=== PATIENT | male | born 1950 | race Caucasian/White ===

== ENCOUNTER 2016-06-30 19:16 | Emergency (ER) | payer MEDICARE, OTHER ==
[~2016-06-30] VITALS: Ht 174 cm; Wt 69.0 kg
[~2016-06-30 19:16] MED LIST: ACET-141 PO; ALBU18HF INHALATION; AZIT250T94 PO
[2016-06-30 19:20] VITALS: Ht 174 cm; Wt 69.0 kg
[2016-06-30] MEDS ORDERED: IPRATROPIUM (NEB) 0.5 MG/2.5 ML AMP NEB STA (20:49)
[2016-06-30] MEDS ORDERED: ALBUTEROL 0.5% (NEB) 2.5 MG/0.5 ML AMP NEB STA (20:49)
[2016-06-30] MEDS ORDERED: ACETAMINOPHEN 325 MG TAB PO ONE (21:00)
--- NOTE | 2016-06-30 21:31 | RADRPT ---
PROCEDURE: XR Chest AP portable CLINICAL INDICATION: Asthma exacerbation TECHNIQUE: An AP portable radiograph of the chest was submitted. COMPARISON: 12/28/2015 FINDINGS: Support Hardware: None Cardiovascular: The heart is upper normal in size of the aorta appears quite tortuous and the pulmon stacey vasculature appears unremarkable. Lung Self: The lung self appear clear with no nodule, alveolar infiltrate, for a interstitial pr ominence evident. Pleural Spaces: No pneumothorax or pleural effusion is identified. Osseous Structures: Moderate diffuse degenerative spine changes are again noted. There is an old fr acture deformity involving the posterior left 7th rib. Soft Tissues: The soft tissues appear unremarkable. IMPRESSION: 1. Atherosclerotic aorta 2. Old fracture deformity again seen at the posterior left 7th rib with diffuse degenerative spine changes. Physician Daphne Date Time Electronically viewed and signed by Jairo Aaron Physician on 06/30/2016 21:30 /
[2016-06-30] MEDS ORDERED: ALBU18HF INHALATION (22:27)
[2016-06-30] MEDS ORDERED: UDROBDM PO (22:27)
[2016-06-30 22:33] VITALS: BP 158/80; PULSE 78; RESP 20; TEMP 98.9
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
== END 2016-06-30 22:38 | disposition home or self-care (01) ==
LOC: FTE 19:16
DX: J06.9 Acute upper respiratory infection, unspecified (principal); F17.210 Nicotine dependence, cigarettes, uncomplicated; I10 Essential (primary) hypertension; R05 Cough
CPT/HCPCS: 71010; 94644

== ENCOUNTER 2016-07-02 10:06 | Emergency (ER) | payer MEDICARE, OTHER ==
[~2016-07-02] VITALS: Ht 172.7 cm; Wt 67.0 kg
[~2016-07-02 10:06] MED LIST changes: +UDROBDM PO
[2016-07-02 10:13] VITALS: Ht 172.7 cm; Wt 67.0 kg
== END 2016-07-02 12:05 | disposition left against medical advice (07) ==
LOC: FTE 10:06
DX: Z53.21 Procedure and treatment not carried out due to patient leaving prior to being seen by health care provider (principal)

== ENCOUNTER 2016-10-31 03:34 | Emergency (ER) | payer MEDICARE, OTHER ==
[~2016-10-31] VITALS: Ht 172.7 cm; Wt 67.0 kg
[2016-10-31 03:48] VITALS: Ht 172.7 cm; Wt 67.0 kg
[2016-10-31] MEDS ORDERED: CYCL-319 PO (04:04)
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
== END 2016-10-31 04:10 | disposition home or self-care (01) ==
LOC: E/R 03:34
DX: M54.12 Radiculopathy, cervical region (principal); I10 Essential (primary) hypertension; F17.210 Nicotine dependence, cigarettes, uncomplicated
CPT/HCPCS: 99283

== ENCOUNTER 2017-01-30 01:58 | Inpatient (IN) | payer MEDICARE, OTHER ==
[~2017-01-30] VITALS: Ht 175.3 cm; Wt 65.0 kg
[~2017-01-30 01:58] MED LIST changes: +CYCL-319 PO
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
[2017-01-30 03:32] LABS: BASOPHILS % 0.7 % (0.0-2.0); EOSINOPHILS # 0.1 10^3/ul (0.0-0.5); EOSINOPHILS % 1.7 % (0.0-7.0); HEMATOCRIT 41.1 % (42.0-52.0); HEMOGLOBIN 13.4 g/dl (14.0-18.0); LYMPHOCYTES # 1.2 10^3/ul (0.8-2.9); LYMPHOCYTES % 21.9 % (15.0-51.0); MEAN CORPUSCULAR HEMOGLOBIN 30.3 pg (29.0-33.0); MEAN CORPUSCULAR HGB CONC 32.6 g/dl (32.0-37.0); MEAN PLATELET VOLUME 10.2 fl (7.4-10.4); MONOCYTE # 0.7 10^3/ul (0.3-0.9); MONOCYTES % 12.2 % (0.0-11.0); NEUTROPHILS % 63.3 % (39.0-77.0); PLATELET COUNT 223 10^3/UL (140-415); RED BLOOD COUNT 4.42 10^6/ul (4.70-6.10); RED CELL DISTRIBUTION WIDTH 14.1 % (11.5-14.5); WHITE BLOOD COUNT 5.4 10^3/ul (4.8-10.8)
[2017-01-30 03:42] LABS: INR 1.08; PT RATIO 1.1
[2017-01-30 03:43] LABS: PARTIAL THROMBOPLASTIN TIME 28.9 Sec (25.0-35.0)
[2017-01-30 03:45] LABS: ALANINE AMINOTRANSFERASE 66 IU/L (13-69); ALBUMIN/GLOBULIN RATIO 1.11; ALKALINE PHOSPHATASE 103 IU/L (42-121); ANION GAP 17 (8-16); ASPARTATE AMINO TRANSFERASE 47 IU/L (15-46); BILIRUBIN,INDIRECT 0.3 mg/dl (0-1.1); BILIRUBIN,TOTAL 0.3 mg/dl (0.2-1.3); BLOOD UREA NITROGEN 24 mg/dl (7-20); CALCIUM 9.2 mg/dl (8.4-10.2); CARBON DIOXIDE 27 mmol/L (21-31); CHLORIDE 104 mmol/L (97-110); CREATININE 1.15 mg/dl (0.61-1.24); GLUCOSE 84 mg/dl (70-220); POTASSIUM 4.5 mmol/L (3.5-5.1); SODIUM 143 mmol/L (135-144); TOTAL PROTEIN 7.6 g/dl (6.1-8.1)
[2017-01-30] MEDS ORDERED: IODIXANOL LOCM 100 ML BTL ONE (04:08)
[2017-01-30] MEDS ORDERED: SOD CHLORIDE 0.9% 100 ML ONE (04:08)
[2017-01-30 04:23] LABS: ETHANOL < 10.0 mg/dl
[2017-01-30 05:07] VITALS: TEMP 98.6
[2017-01-30] MEDS ORDERED: FAMOTIDINE 20 MG INJ IV ONE (05:30)
[2017-01-30 07:03] VITALS: PULSE 79
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
[2017-01-30] MEDS ORDERED: morphine 4 MG/ML VIAL IV PRN (07:30)
[2017-01-30] MEDS ORDERED: ALBUTEROL/IPRATROPIUM (NEB) 3 ML AMP HHN PRN (07:30)
[2017-01-30] MEDS ORDERED: NACL 0.9% 3 ML SYG IV SCH (07:30)
[2017-01-30] MEDS ORDERED: METOCLOPRAMIDE 10 MG INJ IV PRN (07:30)
[2017-01-30] MEDS ORDERED: ONDANSETRON 4 MG INJ IV PRN (07:30)
[2017-01-30] MEDS ORDERED: hydrALAzine 20 MG INJ IV PRN (08:30)
[2017-01-30 08:33] VITALS: BP 128/64; RESP 20
[2017-01-30] MEDS ORDERED: PANTOPRAZOLE 40 MG INJ IV SCH (09:00)
[2017-01-30] MEDS: DEXTROSE 5%-0.45% NACL 1,000 ML IV SCH ×3 (10:02→20:14)
[2017-01-30] MEDS: HYDROmorphONE 1 MG/ML SYG IV PRN ×2 (10:06→20:18)
[2017-01-30 10:13] VITALS: Ht 175.3 cm; Wt 65.0 kg
--- NOTE | 2017-01-30 10:20 | RADRPT ---
PROCEDURE: Chest. CLINICAL INDICATION: Chest pain. TECHNIQUE: Single frontal view of the chest was obtained. COMPARISON: 06/30/2016. FINDINGS: The cardiac silhouette is magnified. The aortic arch is unremarkable. There is no focal consolidat ion, vascular congestion or pleural effusion. There is no pneumothorax. IMPRESSION: No evidence for active cardiopulmonary disease. .Juventino Bucio MD, Date Time Electronically viewed and signed by .Juventino Bucio MD, on 01/30/2017 03:36 .T/
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
[2017-01-30 14:00] VITALS: BP 120/53; RESP 20
[2017-01-30 20:35] VITALS: BP 134/65; RESP 21
[2017-01-31 03:06] VITALS: BP 112/70; RESP 19
[2017-01-31 03:12] VITALS: BP 108/69; RESP 17
[2017-01-31 05:28] LABS: BASOPHIL # 0.1 10^3/ul (0.0-0.1); BASOPHILS % 1.1 % (0.0-2.0); EOSINOPHILS # 0.2 10^3/ul (0.0-0.5); EOSINOPHILS % 4.2 % (0.0-7.0); HEMATOCRIT 43.7 % (42.0-52.0); HEMOGLOBIN 14.2 g/dl (14.0-18.0); LYMPHOCYTES # 0.9 10^3/ul (0.8-2.9); LYMPHOCYTES % 16.7 % (15.0-51.0); MEAN CORPUSCULAR HEMOGLOBIN 30.6 pg (29.0-33.0); MEAN CORPUSCULAR HGB CONC 32.5 g/dl (32.0-37.0); MEAN CORPUSCULAR VOLUME 94.2 fl (82.0-101.0); MEAN PLATELET VOLUME 10.7 fl (7.4-10.4); MONOCYTE # 0.6 10^3/ul (0.3-0.9); MONOCYTES % 11.1 % (0.0-11.0); NEUTROPHILS % 66.7 % (39.0-77.0); PLATELET COUNT 206 10^3/UL (140-415); RED BLOOD COUNT 4.64 10^6/ul (4.70-6.10); RED CELL DISTRIBUTION WIDTH 14.4 % (11.5-14.5); WHITE BLOOD COUNT 5.2 10^3/ul (4.8-10.8)
[2017-01-31 05:47] LABS: ALBUMIN 3.6 g/dl (3.3-4.9); ALBUMIN/GLOBULIN RATIO 1.12; BILIRUBIN,INDIRECT 0.5 mg/dl (0-1.1); BILIRUBIN,TOTAL 0.5 mg/dl (0.2-1.3); CREATININE 1.1 mg/dl (0.61-1.24); MAGNESIUM 1.8 mg/dl (1.7-2.5); PHOSPHORUS 4.1 mg/dl (2.5-4.9); POTASSIUM 4.3 mmol/L (3.5-5.1); TOTAL PROTEIN 6.8 g/dl (6.1-8.1)
[2017-01-31 06:46] LABS: CALCIUM 8.7 mg/dl (8.4-10.2)
[2017-01-31 07:45] VITALS: BP 140/77; RESP 16
[2017-01-31] MEDS: NICOTINE (21 MG/24 HR) PATCH TRANSDERM SCH (08:20)
--- NOTE | 2017-01-31 10:09 | PN ---
Date/Time of Note Date/Time of Note DATE: 01/31/17 TIME: 10:09 Assessment/Plan Lines/Catheters IV Catheter Type (from Nrs): Saline Lock Exam/Review of Systems Vital Signs Vitals Vital Signs Date Time Temp Pulse Resp B/P Pulse Ox O2 Delivery O2 Flow Rate FiO2 01/31/17 07:45 98.3 53 16 140/77 95 01/30/17 07:03 Room Air Intake and Output 01/30/17 01/30/17 01/31/17 15:00 23:00 07:00 Intake Total 1000 ml 1710 ml Balance 1000 ml 1710 ml Results Result Diagram: 01/31/17 0500 01/31/17 0500 Results 24 hrs Laboratory Tests Test 01/31/17 05:00 White Blood Count 5.2 Red Blood Count 4.64 L Hemoglobin 14.2 Hematocrit 43.7 Mean Corpuscular Volume 94.2 Mean Corpuscular Hemoglobin 30.6 Mean Corpuscular Hemoglobin Concent 32.5 Red Cell Distribution Width 14.4 Platelet Count 206 Mean Platelet Volume 10.7 H Neutrophils % 66.7 Lymphocytes % 16.7 Monocytes % 11.1 H Eosinophils % 4.2 Basophils % 1.1 Nucleated Red Blood Cells % 0.0 Neutrophils # (Manual) 3 Lymphocytes # 0.9 Monocytes # 0.6 Eosinophils # 0.2 Basophils # 0.1 Nucleated Red Blood Cells # 0.0 Sodium Level 138 Potassium Level 4.3 Chloride Level 102 Carbon Dioxide Level 28 Anion Gap 12 Blood Urea Nitrogen 19 Creatinine 1.10 Glucose Level 98 Calcium Level 8.7 Phosphorus Level 4.1 Magnesium Level 1.8 Total Bilirubin 0.5 Direct Bilirubin 0.00 Indirect Bilirubin 0.5 Aspartate Amino Transf (AST/SGOT) 46 Alanine Aminotransferase (ALT/SGPT) 60 Alkaline Phosphatase 88 Total Protein 6.8 Albumin 3.6 Globulin 3.20 Albumin/Globulin Ratio 1.12 Medications Medications Current Medications Metoclopramide HCl (Reglan) 10 mg Q6H PRN IV NAUSEA AND/OR VOMITING; Start at 07:30 Morphine Sulfate (morphine) 4 mg Q4H PRN IV pain; Start 01/30/17 at 07:30 Hydromorphone HCl (Dilaudid) 1 mg Q4H PRN IV pain Last administered on t 20:18; Admin Dose 1 MG; Start 01/30/17 at 07:30 Hydralazine HCl (Apresoline) 10 mg Q4H PRN IV SBP > 170; Start 01/30/17 at 08: 30 Nicotine (Nicoderm 21 Mg/ 24hr) 1 patch DAILY TRANSDERM Last administered on t 08:20; Admin Dose 1 PATCH; Start 01/31/17 at 09:00 AMBER MENJIVAR NP Jan 31, 2017 10:09
[2017-01-31] MEDS: HYDROmorphONE 1 MG/ML SYG IV PRN (10:15)
--- NOTE | 2017-01-31 10:22 | PDOCDIS ---
Discharge Instructions CONDITION Patient Condition: Stable HOME CARE INSTRUCTIONS: Special Diet: regular FOLLOW UP/APPOINTMENTS Follow-up Plan 1.Follow up with primary care physician in 1 week If you don't have one please let someone know, we can give you resources that may help you pick one. You may also call your insurance company to assign one to you. Review your medication list with your nurse before leaving and if you need new prescriptions please let your nurse know. I may have made changes to your home medications or given you new prescriptions, please let your primary doctor know as well. Stay compliant with your medications and report any side effects to your PCP or pharmacist. Return to the ER if you have any concerns and cannot reach your doctors or call your insurance company, they usually have a nurse that can help you. 2. Call 911 or go to the nearest emergency room if experiencing loss of consciousness, dizziness, chest pain, shortness of breath, vomiting/abdominal pain, speech difficulties, motor weakness or any unusual symptoms. AMBER MENJIVAR NP Jan 31, 2017 10:22
[2017-01-31] MEDS ORDERED: HYDR-906 PO (10:23)
[2017-01-31] MEDS ORDERED: IBUP200C11 PO (10:24)
[2017-01-31] MEDS ORDERED: ACET500C5 PO (10:29)
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
[2017-01-31 14:30] VITALS: BP 139/74; RESP 18
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
[2017-01-31] MEDS ORDERED: morphine 10 MG INJ IM PRN (15:00)
[2017-01-31] MEDS: FAMOTIDINE 20 MG INJ IV SCH ×2 (15:14→21:08)
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
[2017-01-31 21:06] VITALS: BP 139/82; RESP 19
[2017-01-31 23:22] LABS: HEMATOCRIT 43.2 % (42.0-52.0); HEMOGLOBIN 14.3 g/dl (14.0-18.0)
[2017-02-01 02:00] VITALS: BP 129/56; RESP 19
[2017-02-01] MEDS: morphine 2 MG INJ IV PRN ×2 (04:06→11:04)
[2017-02-01 07:48] LABS: BASOPHIL # 0.1 10^3/ul (0.0-0.1); BASOPHILS % 1.3 % (0.0-2.0); EOSINOPHILS # 0.2 10^3/ul (0.0-0.5); EOSINOPHILS % 4.2 % (0.0-7.0); HEMATOCRIT 43.9 % (42.0-52.0); HEMOGLOBIN 14.2 g/dl (14.0-18.0); LYMPHOCYTES % 18.1 % (15.0-51.0); MEAN CORPUSCULAR HEMOGLOBIN 29.8 pg (29.0-33.0); MEAN CORPUSCULAR HGB CONC 32.3 g/dl (32.0-37.0); MEAN CORPUSCULAR VOLUME 92.2 fl (82.0-101.0); MONOCYTE # 0.6 10^3/ul (0.3-0.9); MONOCYTES % 10.5 % (0.0-11.0); NEUTROPHILS % 65.7 % (39.0-77.0); PLATELET COUNT 213 10^3/UL (140-415); RED BLOOD COUNT 4.76 10^6/ul (4.70-6.10); RED CELL DISTRIBUTION WIDTH 14.2 % (11.5-14.5); WHITE BLOOD COUNT 5.4 10^3/ul (4.8-10.8)
[2017-02-01 08:05] LABS: CALCIUM 8.8 mg/dl (8.4-10.2); CREATININE 0.95 mg/dl (0.61-1.24); POTASSIUM 4.3 mmol/L (3.5-5.1)
[2017-02-01] MEDS: FAMOTIDINE 20 MG INJ IV SCH (09:43)
[2017-02-01] MEDS: NICOTINE (21 MG/24 HR) PATCH TRANSDERM SCH (09:43)
[2017-02-01 10:10] VITALS: BP 130/63; RESP 18
--- NOTE | 2017-02-01 12:06 | PN ---
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 Plan: * Observation * Endoscopic evaluation only if evidence of significant active GI bleeding * As hemoglobin remains stable patient may be discharged * We will sign off and follow upon request Subjective 24 Hr Interval Summary Free Text/Dictation Course reviewed with nursing staff Patient interviewed and examined Poor communication, lethargic, uncooperative No GI complaints no evidence of overt gastrointestinal bleeding Appears safe for outpatient follow-up Exam/Review of Systems Vital Signs Vitals Vital Signs Date Time Temp Pulse Resp B/P Pulse Ox O2 Delivery O2 Flow Rate FiO2 02/01/17 10:10 98.9 64 18 130/63 96 01/30/17 07:03 Room Air Intake and Output 01/31/17 01/31/17 02/01/17 15:00 23:00 07:00 Intake Total 960 ml 480 ml Balance 960 ml 480 ml Exam Constitutional: alert, frail, oriented, other (Lethargic), well developed Head: atraumatic, normocephalic Neck: non-tender, supple Respiratory: clear to auscultation, normal air movement Cardiovascular: nl pulses, regular rate and rhythm Gastrointestinal: nl liver, spleen, non-tender, soft Musculoskeletal: nl extremities to inspection Extremities: normal pulses Skin: nl turgor, No rash or lesions Lymph: nl lymph nodes Results Result Diagram: 02/01/17 0554 02/01/17 0554 Results 24 hrs Laboratory Tests Test 01/31/17 23:03 02/01/17 05:54 Hemoglobin 14.3 14.2 Hematocrit 43.2 43.9 White Blood Count 5.4 Red Blood Count 4.76 Mean Corpuscular Volume 92.2 Mean Corpuscular Hemoglobin 29.8 Mean Corpuscular Hemoglobin Concent 32.3 Red Cell Distribution Width 14.2 Platelet Count 213 Mean Platelet Volume 11.0 H Neutrophils % 65.7 Lymphocytes % 18.1 Monocytes % 10.5 Eosinophils % 4.2 Basophils % 1.3 Nucleated Red Blood Cells % 0.0 Neutrophils # (Manual) 4 Lymphocytes # 1.0 Monocytes # 0.6 Eosinophils # 0.2 Basophils # 0.1 Nucleated Red Blood Cells # 0.0 Sodium Level 142 Potassium Level 4.3 Chloride Level 103 Carbon Dioxide Level 27 Anion Gap 16 Blood Urea Nitrogen 25 H Creatinine 0.95 Glucose Level 107 Calcium Level 8.8 Medications Medications Current Medications Metoclopramide HCl (Reglan) 10 mg Q6H PRN IV NAUSEA AND/OR VOMITING Last administered on 01/31/17 14:45; Admin Dose 10 MG; Start 01/30/17 at 07:30 Morphine Sulfate (morphine) 4 mg Q4H PRN IV pain; Start 01/30/17 at 07:30 Hydralazine HCl (Apresoline) 10 mg Q4H PRN IV SBP > 170; Start 01/30/17 at 08: 30 Nicotine (Nicoderm 21 Mg/ 24hr) 1 patch DAILY TRANSDERM Last administered on 09:43; Admin Dose 1 PATCH; Start 01/31/17 at 09:00 Famotidine (Pepcid Iv) 20 mg BID IV Last administered on 02/01/17 09:43; Admin Dose 20 MG; Start 01/31/17 at 15:00 Morphine Sulfate (morphine) 2 mg Q4H PRN IV PAIN Last administered on 11:04; Admin Dose 2 MG; Start 02/01/17 at 04:00 ADRIENNE ESCOBAR MD Feb 01, 2017 12:06
[2017-02-01 12:43] LABS: HEMATOCRIT 45.2 % (42.0-52.0); HEMOGLOBIN 14.9 g/dl (14.0-18.0)
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
[2017-02-01 17:11] VITALS: BP 147/68; RESP 18
[2017-02-01] MEDS ORDERED: FAMOTIDINE 20 MG TAB PO SCH (21:00)
== END 2017-02-01 18:00 | disposition home or self-care (01) | DRG 379 ==
LOC: E/R 01:58 → PP2 05:28
PROVIDERS: ADMIT Internal Medicine; ATTEND Internal Medicine
DX: K92.0 Hematemesis (principal); I78.0 Hereditary hemorrhagic telangiectasia; R10.9 Unspecified abdominal pain; I16.0 Hypertensive urgency; I10 Essential (primary) hypertension; F17.200 Nicotine dependence, unspecified, uncomplicated; Z76.5 Malingerer [conscious simulation]; Z59.0 Homelessness
CPT/HCPCS: 71010; 74177; 80048; 80053; 80306; 83690; 83735; 84100; 85014; 85018; 85025; 85610; 85730; 86850; 86900; 86901; 96374; J1170; J2270; J2765; J7042; Q9967

== ENCOUNTER 2017-02-08 10:51 | Inpatient (IN) | payer MEDICARE, OTHER ==
[~2017-02-08] VITALS: Ht 175.3 cm; Wt 63.2 kg
[~2017-02-08 10:51] MED LIST changes: -ACET-141 PO; +ACET500C5 PO; -ALBU18HF INHALATION; -AZIT250T94 PO; -CYCL-319 PO; -UDROBDM PO
[2017-02-08] MEDS ORDERED: PANTOPRAZOLE 40 MG INJ IV STA (11:25)
--- NOTE | 2017-02-08 12:19 | RADRPT ---
PROCEDURE: XR Chest. CLINICAL INDICATION: Upper gastrointestinal bleeding. TECHNIQUE: Single frontal view. COMPARISON: 01/30/2017. FINDINGS: The lungs are clear. The heart size is normal. There is calcification in the aorta consistent with atherosclerosis. There is no pleural effusion or pneumothorax. There is an old healed fracture of the left seventh rib. IMPRESSION: 1. Atherosclerosis. 2. Clear lungs. 3. Old healed left seventh rib fracture. RPTAT: QQ .Mathieu Mitchell MD, MD Date Time Electronically viewed and signed by .Mathieu Mitchell MD, MD on 02/08/2017 12:18 .R/
[2017-02-08 12:44] LABS: BASOPHIL # 0.1 10^3/ul (0.0-0.1); BASOPHILS % 1.7 % (0.0-2.0); EOSINOPHILS # 0.2 10^3/ul (0.0-0.5); EOSINOPHILS % 3.9 % (0.0-7.0); HEMATOCRIT 41.8 % (42.0-52.0); HEMOGLOBIN 13.8 g/dl (14.0-18.0); LYMPHOCYTES # 0.8 10^3/ul (0.8-2.9); LYMPHOCYTES % 19.9 % (15.0-51.0); MEAN CORPUSCULAR HEMOGLOBIN 30.9 pg (29.0-33.0); MEAN CORPUSCULAR VOLUME 93.7 fl (82.0-101.0); MEAN PLATELET VOLUME 10.7 fl (7.4-10.4); MONOCYTE # 0.5 10^3/ul (0.3-0.9); MONOCYTES % 12.3 % (0.0-11.0); PLATELET COUNT 202 10^3/UL (140-415); RED BLOOD COUNT 4.46 10^6/ul (4.70-6.10); RED CELL DISTRIBUTION WIDTH 14.2 % (11.5-14.5); WHITE BLOOD COUNT 4.1 10^3/ul (4.8-10.8)
[2017-02-08] MEDS ORDERED: FAMOTIDINE 20 MG INJ IV STA (12:54)
[2017-02-08] MEDS ORDERED: morphine 4 MG/ML VIAL IV STA (12:54)
[2017-02-08 13:00] LABS: INR 1.03; PROTIME 13.5 Sec (12.2-14.2); PT RATIO 1.1
[2017-02-08] MEDS ORDERED: METOCLOPRAMIDE 10 MG INJ IV ONE (13:00)
[2017-02-08 13:01] LABS: PARTIAL THROMBOPLASTIN TIME 30.6 Sec (25.0-35.0)
[2017-02-08 13:04] LABS: ALANINE AMINOTRANSFERASE 61 IU/L (13-69); ALBUMIN 3.9 g/dl (3.3-4.9); ALBUMIN/GLOBULIN RATIO 1.08; ALKALINE PHOSPHATASE 96 IU/L (42-121); ANION GAP 17 (8-16); ASPARTATE AMINO TRANSFERASE 45 IU/L (15-46); BILIRUBIN,INDIRECT 0.9 mg/dl (0-1.1); BILIRUBIN,TOTAL 0.9 mg/dl (0.2-1.3); BLOOD UREA NITROGEN 18 mg/dl (7-20); CARBON DIOXIDE 29 mmol/L (21-31); CHLORIDE 103 mmol/L (97-110); CREATININE 0.95 mg/dl (0.61-1.24); GLUCOSE 86 mg/dl (70-220); POTASSIUM 4.4 mmol/L (3.5-5.1); SODIUM 145 mmol/L (135-144); TOTAL PROTEIN 7.5 g/dl (6.1-8.1)
[2017-02-08] MEDS ORDERED: SOD CHLORIDE 0.9% 100 ML ONE (13:06)
[2017-02-08] MEDS ORDERED: IOHEXOL 300MG/ML 150 ML BTL ONE (13:06)
[2017-02-08 13:20] LABS: TROPONIN-I < 0.012 ng/ml (0.00-0.12)
[2017-02-08] MEDS ORDERED: HYDROmorphONE 1 MG/ML SYG IV STA (13:45)
--- NOTE | 2017-02-08 13:54 | ERA ---
ER Documentation Chief Complaint Date/Time DATE: 02/08/17 TIME: 13:49 Chief Complaint CODE GREEN: VOMITING BRIGHT RED BLOOD SINCE THIS AM. 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 The patient was a code green as he stated he was too weak to ambulate into the emergency department and therefore was sitting outside on the hospital sidewalk. He indicates he is currently homeless and has no history of alcoholism. The patient had a similar episode February 01, 2017 roughly 1 week prior to arrival when he was admitted to the hospital and seen by the GI physician Dr. Barros. The patient has had no fevers or shaking or chills. He denies any dark stool or bright red blood per rectum. He denies any shortness of breath. He is complaining of epigastric pain that radiates to the sternum and to the left side of his back. He denies any chest pressure that radiates to the neck arm back or jaw. He denies any lower abdominal pain. He has no frequency urgency or dysuria. He states the pain is 10 out of 10 in intensity. ROS All systems reviewed and are negative except as per history of present illness. Medications Home Meds Discontinued Scripts Acetaminophen* (Tylophen*) 500 Mg Capsule, 500 MG PO Q6H Y for PAIN, #30 TAB Prov:AMBER MENJIVAR NP 01/31/17 Allergies Allergies: Coded Allergies: ondansetron (Verified Allergy, Intermediate, swelling to vein, 02/08/17) ibuprofen (Verified Allergy, Mild, 02/08/17) strawberry (Verified Allergy, Mild, 02/08/17) pantoprazole sodium (Verified Allergy, Unknown, 02/08/17) zolpidem (Verified Allergy, Unknown, 02/08/17) PMhx/Soc History of Surgery: No Anesthesia Reaction: No Hx Neurological Disorder: No Hx Respiratory Disorders: No Hx Cardiac Disorders: No Hx Psychiatric Problems: No Hx Miscellaneous Medical Probl: Yes (anemia,fall,chronic pain) Hx Alcohol Use: No Hx Substance Use: No Hx Tobacco Use: No Smoking Status: Never smoker Physical Exam Vitals Vital Signs Date Time Temp Pulse Resp B/P Pulse Ox O2 Delivery O2 Flow Rate FiO2 8/26/17 10:57 98.3 89 19 135/79 93 Physical Exam Constitutional:Well-developed. Well-nourished. HEENT:Normocephalic. Atraumatic.Pupils were equal round reactive to light. Moist mucous membranes.No tonsillar exudates. No conjunctival pallor. Dried blood surrounding the patient's lips with no blood present within the oropharynx. Neck: No nuchal rigidity. No lymphadenopathy. No posterior cervical spine tenderness or step-offs. Respiratory: Not using accessory muscles of respiration.Lungs were clear to auscultation bilaterally. No rhonchi. No rales. No wheezing. Cardiovascular: Regular rate regular rhythm.No murmurs. No rubs were appreciated.S1, S2 normal. Distal pulses are palpable 2+ bilaterally. GI: Abdomen was soft. Mild epigastric tenderness. Non Distended. No pulsatile abdominal masses or bruits. No rebound. No guarding. Bowel sounds were present and normal. Muscle skeletal: Full range of motion of both the upper and lower extremities bilaterally.Normal muscle tone.No assymetrical calf tenderness or swelling. Skin: No petechia, no purpura. No lesions on the palms or the soles of the feet. No maculopapular rash. NEURO: Patient was alert, awake, orientated x3.No facial droop. Gait observed and normal with no ataxia.Speech had regular rate and rhythm. No focal neurological deficits. Result Diagram: 02/08/17 1214 02/08/17 1214 Results 24 hrs Laboratory Tests Test 02/08/17 12:14 White Blood Count 4.110^3/ul Red Blood Count 4.4610^6/ul Hemoglobin 13.8g/dl Hematocrit 41.8% Mean Corpuscular Volume 93.7fl Mean Corpuscular Hemoglobin 30.9pg Mean Corpuscular Hemoglobin Concent 33.0g/dl Red Cell Distribution Width 14.2% Platelet Count 24371^3/UL Mean Platelet Volume 10.7fl Neutrophils % 62.0% Lymphocytes % 19.9% Monocytes % 12.3% Eosinophils % 3.9% Basophils % 1.7% Nucleated Red Blood Cells % 0.0/100WBC Neutrophils # (Manual) 2.510^3/ul Lymphocytes # 0.810^3/ul Monocytes # 0.510^3/ul Eosinophils # 0.210^3/ul Basophils # 0.110^3/ul Nucleated Red Blood Cells # 0.010^3/ul Prothrombin Time 13.5Sec Prothrombin Time Ratio 1.1 INR International Normalized Ratio 1.03 Activated Partial Thromboplast Time 30.6Sec Sodium Level 145mmol/L Potassium Level 4.4mmol/L Chloride Level 103mmol/L Carbon Dioxide Level 29mmol/L Anion Gap 17 Blood Urea Nitrogen 18mg/dl Creatinine 0.95mg/dl Glucose Level 86mg/dl Calcium Level 9.0mg/dl Total Bilirubin 0.9mg/dl Direct Bilirubin 0.00mg/dl Indirect Bilirubin 0.9mg/dl Aspartate Amino Transf (AST/SGOT) 45IU/L Alanine Aminotransferase (ALT/SGPT) 61IU/L Alkaline Phosphatase 96IU/L Troponin I < 0.012ng/ml B-Type Natriuretic Peptide 170PG/ML Total Protein 7.5g/dl Albumin 3.9g/dl Globulin 3.60g/dl Albumin/Globulin Ratio 1.08 Ethyl Alcohol Level < 10.0mg/dl Current Medications Medications (Trade) Dose Ordered Sig/Yeyo Route PRN Reason Start Time Stop Time Status Last Admin Dose Admin Pantoprazole (Protonix Iv) 40 mg ONCE STAT IV 02/08/17 11:25 02/08/17 11:26 DC Morphine Sulfate (morphine) 4 mg ONCE STAT IV 02/08/17 12:54 02/08/17 12:55 DC Famotidine (Pepcid Iv) 20 mg ONCE STAT IV 02/08/17 12:54 02/08/17 12:55 DC Metoclopramide HCl (Reglan) 10 mg ONCE ONCE IV 02/08/17 13:00 02/08/17 13:01 DC IV Flush 10 ml 10 ml STK-MED ONCE .ROUTE 02/08/17 13:06 02/08/17 13:07 DC Sodium Chloride (NS) 100 ml @ ud STK-MED ONCE .ROUTE 02/08/17 13:06 02/08/17 13:07 DC Iohexol (Omnipaque 300mg/ ml) 150 ml STK-MED ONCE .ROUTE 02/08/17 13:06 02/08/17 13:07 DC Hydromorphone HCl (Dilaudid) 1 mg ONCE STAT IV 02/08/17 13:45 02/08/17 13:47 DC Procedures/MDM The patient presented to the emergency department with a presentation of upper gastrointestinal bleeding. My differential diagnosis included but was not limited to peptic ulcer disease, gastric or esophageal erosions, gastritis, esophageal varices, Patricia-Gorman tear, tumor or arteriovenous malformations. 12 Lead EKG tracing ordered and reviewed by myself showed: Sinus bradycardia 58 bpm and no arrhythmia. W[place] interval normal. QRS duration normal. No ST segment elevation No ST segment depression. No changes consistent with acute ischemia. Left axis deviation The patient received IV Protonix and for analgesic control received intravenous morphine and is allergic to Zofran therefore was given Reglan as an antiemetic. He stated this did not improve his pain and therefore he was given IV Dilaudid. I reviewed the patient's records and he had a CT scan of the abdomen that was performed 1 week ago but given that the patient was having recurrence of his pain with signs of an upper GI bleed and now pain that radiates to the back I did feel is necessary to obtain a CT scan of the chest and abdomen to rule out aortic dissection. This was not present the patient did not appear to have an acute surgical abdomen. The patient will be admitted for further evaluation. He did receive IV Protonix. There is no active emesis while the patient was in the emergency department. Departure Diagnosis: Primary Impression: Hematemesis Qualified Code: K92.0 - Hematemesis with nausea Condition: Serious ITALIAJOSEPHA Feb 08, 2017 13:54
--- NOTE | 2017-02-08 15:35 | RADRPT ---
PROCEDURE: CT Chest, Abdomen and Pelvis. CLINICAL INDICATION: Chest Pain.R/O Dissection TECHNIQUE: CT scan of the chest, abdomen, and pelvis with intravenous contrast was performed on a multidetector CT. The patient was scanned following the uncomplicated intravenous administration of 100 cc of Omnipaque 300 intravenous contrast. 3-D, sagittal and coronal reformatted images were ob tained from the axial source images. CT D I 41 mCi. Dose 443 mCi per centimeter COMPARISON: None. FINDINGS: CT chest: There is no central or peripheral pulmonary embolism. Calcification is seen in the wall of the aort a. No aneurysm or dissection is present. The descending thoracic aorta is tortuous. No hilar or m ediastinal adenopathy or masses present. There is no pleural or pericardial effusion. No lung infi ltrate or mass is present. Noted is a 5 mm noncalcified irregular shaped nodule on the medial aspec t of the anterior segment of the left upper lobe. No other lung nodule is seen. There is no axilla ry, supraclavicular or internal mammary chain adenopathy. Old healed left rib fractures are seen an d there are mild senescent degenerative changes in the thoracic spine. CT abdomen pelvis: The liver is of normal size, contour and attenuation. No mass or intrahepatic ductal dilatation is seen. No gallstones are visualized. No splenic, adrenal or pancreatic abnormality is present. Kid neys enhance symmetrically. No hydronephrosis, calculus or solid masses present. There is a 1 cm p arenchymal cyst of the right kidney. The ureters are of normal course and caliber with no stone. N o bladder masses stone is visualized. The prostate and seminal vesicles are normal. Abdominal aort a is of normal course and caliber with no dissection. There is mild vascular calcifications in the abdomen pelvis. No adenopathy is visualized. There is no bowel mass or obstruction. No phlegmon, ascites or pneumoperitoneum is seen. There is degenerative disk disease at T12-L1. IMPRESSION: Mild calcified plaque thoracic and abdominal aorta. No evidence of dissection or aneurysm. No central or peripheral pulmonary embolism. 5 mm noncalcified irregular shaped nodule left upper lobe. This is indeterminate for malignancy. F ollow-up chest CT should be performed in 3 months to insure stability. No pneumonia or failure. The right renal cyst. Degenerative changes spine. .Ian Marquez MD, MD Date Time Electronically viewed and signed by .Ian Marquez MD, MD on 02/08/2017 15:34 .A/
[2017-02-08] MEDS ORDERED: ACETAMINOPHEN 325 MG TAB PO PRN ×2 (16:00→17:00)
--- NOTE | 2017-02-08 16:31 | HP ---
Date/Time of Note Date/Time of Note DATE: 02/08/17 TIME: 16:31 Assessment/Plan VTE Prophylaxis VTE Prophylaxis Intervention: SCD's Assessment/Plan Assessment/Plan 66 yo M with pmhx HHT, homelessness here with unwitnessed hematemesis. Unclear if pt is being untruthful v actually having hematemesis. #?hematemesis -h2b as pt with alleged PPI allergy -GI eval -serial hgbs. want to keep >7 #lung nodule: outpatient follow up HPI/ROS Admit Date/Time Admit Date/Time Hx of Present Illness CC hematemesis x 1 day HPI 66 yo M with pmhx homelessness, hereditary hemorrhagic telangiectasia, multiple admissions for hematemesis presents with c/o 1 day of hematemesis. Pt was on hospital grounds this AM for unk reasons. Code Green called when pt started vomitting blood? Of note, unclear if this hematemesis was actually witnessed. Pt states he vomitted 8 times in the past 24 hours. Pt most recently admitted here 8.17-8.19 for same. Seen by GI, endoscopy deferred. Pt's most recent EGD on file here appears to be from 2012. Showed moderate degree of esophagitis and duodenitis. No EVs appreciated. In EMR pt is listed as having a PPI allergy though unclear what the allergy is. no hx etoh misuse PMH/Family/Social Past Medical History as per HPI Past Surgical History Past Surgical Hx: no surgical history Social History Smoking Status: Never smoker Exam/Review of Systems Vital Signs Vitals Vital Signs Date Time Temp Pulse Resp B/P Pulse Ox O2 Delivery O2 Flow Rate FiO2 02/08/17 16:23 75 17 131/79 100 Room Air 02/08/17 10:57 98.3 Exam Exam nad, sleeping, disheveled rhinophyma no mrg lungs clear abd soft no rashes no edema hgb 13s, <1 g change from [address] CAP IMPRESSION: Mild calcified plaque thoracic and abdominal aorta. No evidence of dissection or aneurysm. No central or peripheral pulmonary embolism. 5 mm noncalcified irregular shaped nodule left upper lobe. This is indeterminate for malignancy. Follow-up chest CT should be performed in 3 months to insure stability. No pneumonia or failure. The right renal cyst. Degenerative changes spine. Labs Result Diagram: 02/08/17 1214 02/08/17 1214 HANNAH CHAPMAN MD Feb 08, 2017 16:31 02/08/17 10:57 98.3 Labs Result Diagram: 02/08/17 1214 02/08/17 1214 HANNAH CHAPMAN MD Feb 08, 2017 16:31
[2017-02-08] MEDS ORDERED: METOCLOPRAMIDE 10 MG INJ IV PRN (17:00)
[2017-02-08] MEDS ORDERED: BISACODYL (EC) 5 MG TAB PO PRN (17:00)
[2017-02-08] MEDS ORDERED: MAGNESIUM HYDROXIDE 30ML CUP PO PRN (17:00)
[2017-02-08] MEDS ORDERED: ONDANSETRON 4 MG TAB PO PRN (17:00)
[2017-02-08] MEDS ORDERED: BISACODYL 10 MG SUPP PR PRN (17:00)
[2017-02-08] MEDS ORDERED: NACL 0.9% 3 ML SYG IV SCH (17:00)
[2017-02-08] MEDS ORDERED: DOCUSATE SODIUM 100 MG CAP PO PRN (17:00)
[2017-02-08] MEDS: FAMOTIDINE 20 MG TAB PO SCH (21:04)
[2017-02-08 22:10] VITALS: PULSE 66; Ht 175.3 cm; Wt 63.2 kg
[2017-02-08 22:15] VITALS: BP 109/60; RESP 21
[2017-02-08] MEDS: morphine 2 MG INJ IV PRN (22:57)
[2017-02-08] MEDS ORDERED: HYDROCODONE/APAP (5/325) TAB PO PRN (23:00)
[2017-02-09] VITALS (10 sets, daily range): BP systolic 106–142; BP diastolic 56–70; PULSE 52–60; RESP 16–19
[2017-02-09 07:21] LABS: ALBUMIN 3.1 g/dl (3.3-4.9); ALBUMIN/GLOBULIN RATIO 0.91; BILIRUBIN,INDIRECT 0.4 mg/dl (0-1.1); BILIRUBIN,TOTAL 0.4 mg/dl (0.2-1.3); CALCIUM 8.6 mg/dl (8.4-10.2); CREATININE 0.93 mg/dl (0.61-1.24); TOTAL PROTEIN 6.5 g/dl (6.1-8.1)
[2017-02-09] MEDS: morphine 2 MG INJ IV PRN (07:27)
[2017-02-09 07:36] LABS: BASOPHIL # 0.1 10^3/ul (0.0-0.1); BASOPHILS % 1.8 % (0.0-2.0); EOSINOPHILS # 0.2 10^3/ul (0.0-0.5); HEMATOCRIT 40.9 % (42.0-52.0); HEMOGLOBIN 13.5 g/dl (14.0-18.0); LYMPHOCYTES # 1.1 10^3/ul (0.8-2.9); LYMPHOCYTES % 24.1 % (15.0-51.0); MEAN CORPUSCULAR HEMOGLOBIN 31.1 pg (29.0-33.0); MEAN CORPUSCULAR VOLUME 94.2 fl (82.0-101.0); MEAN PLATELET VOLUME 10.8 fl (7.4-10.4); MONOCYTE # 0.6 10^3/ul (0.3-0.9); MONOCYTES % 12.5 % (0.0-11.0); NEUTROPHILS % 56.4 % (39.0-77.0); PLATELET COUNT 194 10^3/UL (140-415); RED BLOOD COUNT 4.34 10^6/ul (4.70-6.10); RED CELL DISTRIBUTION WIDTH 14.1 % (11.5-14.5); WHITE BLOOD COUNT 4.4 10^3/ul (4.8-10.8)
[2017-02-09] MEDS: FAMOTIDINE 20 MG TAB PO SCH ×2 (09:03→20:36)
--- NOTE | 2017-02-09 11:16 | CONS ---
Date/Time of Note Date/Time of Note DATE: 02/09/17 TIME: 11:05 Assessment/Plan Assessment/Plan Additional Assessment/Plan Assessment * Hematemesis Upper GI bleed vs others Plan * Stool for occult blood * EGD tomorrow risks and benefit explained to patient and agreed with the planned procedure * continue present management * case discussed with Dr Barros * Further orders will depend on clinical course Consultation Date/Type/Reason Admit Date/Time Date of Consultation: Feb 09, 2017 Type of Consultation: gastroenterology Reason for Consultation hematemesis Referring Provider: HANNAH CHAPMAN MD Hx of Present Illness 66 year old male with past medical history of Osler rao Rendu syndrome, hemorrhagic telangiectasia,multiple admissions hematemesis presented in emergency room because of hematemesis 3 days about 1/2 glass per bout.He denies any hematochezia,shortness of breath ,nausea nor vomiting..Hemoglobin has been stable at 14,but when waking up ,he noted a blood on the pillow.Presently ,no evidenced of bleeding.I have discussed with the patient the planned to do EGD in order to rule bleeding in stomach since he has been admitted multiple times because of hematemesis Constitutional: improved, no complaints Eyes: no complaints ENT: no complaints Respiratory: no complaints Cardiovascular: no complaints Gastrointestinal: blood Genitourinary: no complaints Musculoskeletal: no complaints Skin: no complaints Neurologic: no complaints Endocrine: no complaints Lymphatic: no complaints Psychological: nl mood/affect, no complaints Immunologic: no complaints Past Medical History Medical History: other (osler rao rendu) Past Surgical History Past Surgical Hx: no surgical history Family History Significant Family History: no pertinent family hx Social History Smoking Status: Current every day smoker Exam/Review of Systems Vital Signs Vitals Vital Signs Date Time Temp Pulse Resp B/P Pulse Ox O2 Delivery O2 Flow Rate FiO2 02/09/17 08:04 52 02/09/17 07:38 98.4 18 121/65 93 02/08/17 16:23 Room Air Exam Constitutional: alert, oriented, well developed Psych: nl mood/affect, no complaints Head: atraumatic, normocephalic Eyes: EOMI, PERRL, nl conjunctiva, nl lids, nl sclera ENMT: nl external ears & nose, nl lips & teeth, nl nasal mucosa & septum Neck: non-tender, supple Respiratory: clear to auscultation, normal air movement Cardiovascular: nl pulses, regular rate and rhythm Gastrointestinal: nl liver, spleen, non-tender, soft Musculoskeletal: nl extremities to inspection, nl gait and stance Extremities: normal pulses Neurological: GUM WORKER II-XII intact, nl mental status, nl speech, nl strength Skin: nl turgor, No rash or lesions Lymph: nl lymph nodes Results Result Diagram: 02/09/17 0536 02/09/17 0536 Results 24 hrs Laboratory Tests Test 02/08/17 12:14 02/09/17 05:36 White Blood Count 4.1 #L 4.4 L Red Blood Count 4.46 L 4.34 L Hemoglobin 13.8 L 13.5 L Hematocrit 41.8 L 40.9 L Mean Corpuscular Volume 93.7 94.2 Mean Corpuscular Hemoglobin 30.9 31.1 Mean Corpuscular Hemoglobin Concent 33.0 33.0 Red Cell Distribution Width 14.2 14.1 Platelet Count 202 194 Mean Platelet Volume 10.7 H 10.8 H Neutrophils % 62.0 56.4 Lymphocytes % 19.9 24.1 Monocytes % 12.3 H 12.5 H Eosinophils % 3.9 5.0 Basophils % 1.7 1.8 Nucleated Red Blood Cells % 0.0 0.0 Neutrophils # (Manual) 2.5 2.5 Lymphocytes # 0.8 1.1 Monocytes # 0.5 0.6 Eosinophils # 0.2 0.2 Basophils # 0.1 0.1 Nucleated Red Blood Cells # 0.0 0.0 Prothrombin Time 13.5 Prothrombin Time Ratio 1.1 INR International Normalized Ratio 1.03 Activated Partial Thromboplast Time 30.6 Sodium Level 145 H 136 Potassium Level 4.4 4.0 Chloride Level 103 101 Carbon Dioxide Level 29 29 Anion Gap 17 H 10 # Blood Urea Nitrogen 18 19 Creatinine 0.95 0.93 Glucose Level 86 81 Calcium Level 9.0 8.6 Total Bilirubin 0.9 0.4 Direct Bilirubin 0.00 0.00 Indirect Bilirubin 0.9 0.4 Aspartate Amino Transf (AST/SGOT) 45 45 Alanine Aminotransferase (ALT/SGPT) 61 58 Alkaline Phosphatase 96 78 Troponin I < 0.012 B-Type Natriuretic Peptide 170 H Total Protein 7.5 6.5 # Albumin 3.9 3.1 L Globulin 3.60 H 3.40 H Albumin/Globulin Ratio 1.08 0.91 Ethyl Alcohol Level < 10.0 Medications Medications Current Medications Metoclopramide HCl (Reglan) 10 mg Q6H PRN IV NAUSEA AND/OR VOMITING; Start at 17:00 Acetaminophen (Tylenol Tab) 650 mg Q6H PRN PO PAIN LEVEL 1-3 OR FEVER; Start at 17:00 Docusate Sodium (Colace) 100 mg Q12H PRN PO CONSTIPATION; Start 02/08/17 at 17: 00 Magnesium Hydroxide (Milk Of Mag) 30 ml DAILY PRN PO CONSTIPATION; Start at 17:00 Bisacodyl (Dulcolax) 5 mg DAILY PRN PO CONSTIPATION; Start 02/08/17 at 17:00 Bisacodyl (Dulcolax Supp) 10 mg DAILY PRN [place] CONSTIPATION; Start 02/08/17 at 17 :00 Famotidine (Pepcid) 20 mg BID PO Last administered on 02/09/17 09:03; Admin Dose 20 MG; Start 02/08/17 at 21:00 Acetaminophen/ Hydrocodone Bitart ([place] (5/325)) 1 tab Q6H PRN PO PAIN LEVEL 4 -7; Start 02/08/17 at 23:00 Morphine Sulfate (morphine) 2 mg Q4H PRN IV PAIN LEVEL 7-10 Last administered on 02/09/17 07:27; Admin Dose 2 MG; Start 02/08/17 at 23:00 JANICE SIDHU NP Feb 09, 2017 11:16
--- NOTE | 2017-02-09 13:33 | PN ---
Date/Time of Note Date/Time of Note DATE: 02/09/17 TIME: 13:27 Assessment/Plan VTE Prophylaxis VTE Prophylaxis Intervention: SCD's Lines/Catheters IV [facility] Saline Lock Urinary Cath still in place: No Assessment/Plan Assessment/Plan 66 yo M with pmhx HHT, homelessness here with unwitnessed hematemesis. Unclear if pt is being untruthful v actually having hematemesis. #?hematemesis -h2b as pt with alleged PPI allergy -GI eval -serial hgbs. want to keep >7 #lung nodule: outpatient follow up with repeat CT in 3 mos Subjective 24 Hr Interval Summary Free Text/Dictation No hematemesis but maybe had some blood from his mouth this AM? Initially wanted to leave to get his food stamps Exam/Review of Systems Vital Signs Vitals Vital Signs Date Time Temp Pulse Resp B/P Pulse Ox O2 Delivery O2 Flow Rate FiO2 02/09/17 11:22 98.2 58 18 131/70 92 02/08/17 16:23 Room Air Exam nad no mrg lungs clear abd soft no rashes hgb still 13s Results Result Diagram: 02/09/17 0536 02/09/17 0536 Results 24 hrs Laboratory Tests Test 02/09/17 05:36 White Blood Count 4.4 L Red Blood Count 4.34 L Hemoglobin 13.5 L Hematocrit 40.9 L Mean Corpuscular Volume 94.2 Mean Corpuscular Hemoglobin 31.1 Mean Corpuscular Hemoglobin Concent 33.0 Red Cell Distribution Width 14.1 Platelet Count 194 Mean Platelet Volume 10.8 H Neutrophils % 56.4 Lymphocytes % 24.1 Monocytes % 12.5 H Eosinophils % 5.0 Basophils % 1.8 Nucleated Red Blood Cells % 0.0 Neutrophils # (Manual) 2.5 Lymphocytes # 1.1 Monocytes # 0.6 Eosinophils # 0.2 Basophils # 0.1 Nucleated Red Blood Cells # 0.0 Sodium Level 136 Potassium Level 4.0 Chloride Level 101 Carbon Dioxide Level 29 Anion Gap 10 # Blood Urea Nitrogen 19 Creatinine 0.93 Glucose Level 81 Calcium Level 8.6 Total Bilirubin 0.4 Direct Bilirubin 0.00 Indirect Bilirubin 0.4 Aspartate Amino Transf (AST/SGOT) 45 Alanine Aminotransferase (ALT/SGPT) 58 Alkaline Phosphatase 78 Total Protein 6.5 # Albumin 3.1 L Globulin 3.40 H Albumin/Globulin Ratio 0.91 Medications Medications Current Medications Metoclopramide HCl (Reglan) 10 mg Q6H PRN IV NAUSEA AND/OR VOMITING; Start at 17:00 Acetaminophen (Tylenol Tab) 650 mg Q6H PRN PO PAIN LEVEL 1-3 OR FEVER; Start at 17:00 Docusate Sodium (Colace) 100 mg Q12H PRN PO CONSTIPATION; Start 02/08/17 at 17: 00 Magnesium Hydroxide (Milk Of Mag) 30 ml DAILY PRN PO CONSTIPATION; Start at 17:00 Bisacodyl (Dulcolax) 5 mg DAILY PRN PO CONSTIPATION; Start 02/08/17 at 17:00 Bisacodyl (Dulcolax Supp) 10 mg DAILY PRN [place] CONSTIPATION; Start 02/08/17 at 17 :00 Famotidine (Pepcid) 20 mg BID PO Last administered on 02/09/17 09:03; Admin Dose 20 MG; Start 02/08/17 at 21:00 Acetaminophen/ Hydrocodone Bitart ([place] (5/325)) 1 tab Q6H PRN PO PAIN LEVEL 4 -7; Start 02/08/17 at 23:00 Morphine Sulfate (morphine) 2 mg Q4H PRN IV PAIN LEVEL 7-10 Last administered on 02/09/17 07:27; Admin Dose 2 MG; Start 02/08/17 at 23:00 HANNAH CHAPMAN MD Feb 09, 2017 13:33
[2017-02-09] MEDS: NICOTINE (21 MG/24 HR) PATCH TRANSDERM SCH (18:35)
[2017-02-09] MEDS: METOCLOPRAMIDE 10 MG INJ IV SCH (21:49)
[2017-02-09] MEDS: FAMOTIDINE 20 MG INJ IV SCH (21:55)
[2017-02-10 04:14] VITALS: BP 122/71; RESP 19
[2017-02-10] MEDS: morphine 2 MG INJ IV PRN ×2 (04:58→09:48)
[2017-02-10] MEDS: METOCLOPRAMIDE 10 MG INJ IV SCH ×2 (04:59→09:49)
[2017-02-10] MEDS: FAMOTIDINE 20 MG INJ IV SCH (05:00)
[2017-02-10 09:38] LABS: BASOPHIL # 0.1 10^3/ul (0.0-0.1); BASOPHILS % 1.5 % (0.0-2.0); EOSINOPHILS # 0.1 10^3/ul (0.0-0.5); EOSINOPHILS % 2.8 % (0.0-7.0); HEMATOCRIT 42.1 % (42.0-52.0); HEMOGLOBIN 13.7 g/dl (14.0-18.0); LYMPHOCYTES % 22.5 % (15.0-51.0); MEAN CORPUSCULAR HEMOGLOBIN 29.8 pg (29.0-33.0); MEAN CORPUSCULAR HGB CONC 32.5 g/dl (32.0-37.0); MEAN CORPUSCULAR VOLUME 91.5 fl (82.0-101.0); MEAN PLATELET VOLUME 10.5 fl (7.4-10.4); MONOCYTE # 0.6 10^3/ul (0.3-0.9); MONOCYTES % 13.4 % (0.0-11.0); NEUTROPHILS % 59.6 % (39.0-77.0); PLATELET COUNT 200 10^3/UL (140-415); WHITE BLOOD COUNT 4.6 10^3/ul (4.8-10.8)
[2017-02-10] MEDS: NICOTINE (21 MG/24 HR) PATCH TRANSDERM SCH (09:48)
[2017-02-10 11:29] VITALS: BP 135/65; RESP 18
--- NOTE | 2017-02-10 13:42 | DS ---
Date/Time of Note Date/Time of Note DATE: 02/10/17 TIME: 13:42 Discharge Summary Admission/Discharge Info Admit Date/Time Feb 08, 2017 at 15:49 Discharge Date/Time Discharge Diagnosis Hematemesis: Patient left AMA Hx of Present Illness CC hematemesis x 1 day HPI 66 yo M with pmhx homelessness, hereditary hemorrhagic telangiectasia, multiple admissions for hematemesis presents with c/o 1 day of hematemesis. Pt was on hospital grounds this AM for unk reasons. Code Zak called when pt started vomitting blood? Of note, unclear if this hematemesis was actually witnessed. Pt states he vomitted 8 times in the past 24 hours. Pt most recently admitted here 8.17-8.19 for same. Seen by GI, endoscopy deferred. Pt's most recent EGD on file here appears to be from 2012. Showed moderate degree of esophagitis and duodenitis. No EVs appreciated. In EMR pt is listed as having a PPI allergy though unclear what the allergy is. no hx etoh misuse Hospital Course 66 year old male with past medical history of Osler rao Rendu syndrome, hemorrhagic telangiectasia,multiple admissions hematemesis presented in emergency room because of hematemesis 3 days about 1/2 glass per bout.He denies any hematochezia,shortness of breath ,nausea nor vomiting..Hemoglobin has been stable at 14,but when waking up ,he noted a blood on the pillow.Presently ,no evidenced of bleeding.I have discussed with the patient the planned to do EGD in order to rule bleeding in stomach since he has been admitted multiple times because of hematemesis Home Meds Discontinued Scripts Acetaminophen* (Tylophen*) 500 Mg Capsule, 500 MG PO Q6H Y for PAIN, #30 TAB Prov:AMBER MENJIVAR NP 01/31/17 Primary Care Provider Not On Staff Doctor Pending Labs Laboratory Tests Test 02/10/17 09:10 White Blood Count 4.610^3/ul (4.8-10.8) Red Blood Count 4.6010^6/ul (4.70-6.10) Hemoglobin 13.7g/dl (14.0-18.0) Hematocrit 42.1% (42.0-52.0) Mean Corpuscular Volume 91.5fl (82.0-101.0) Mean Corpuscular Hemoglobin 29.8pg (29.0-33.0) Mean Corpuscular Hemoglobin Concent 32.5g/dl (32.0-37.0) Red Cell Distribution Width 14.0% (11.5-14.5) Platelet Count 89585^3/UL (140-415) Mean Platelet Volume 10.5fl (7.4-10.4) Neutrophils % 59.6% (39.0-77.0) Lymphocytes % 22.5% (15.0-51.0) Monocytes % 13.4% (0.0-11.0) Eosinophils % 2.8% (0.0-7.0) Basophils % 1.5% (0.0-2.0) Nucleated Red Blood Cells % 0.0/100WBC (0.0-0.0) Neutrophils # (Manual) 2.810^3/ul (1.7-7.5) Lymphocytes # 1.010^3/ul (0.8-2.9) Monocytes # 0.610^3/ul (0.3-0.9) Eosinophils # 0.110^3/ul (0.0-0.5) Basophils # 0.110^3/ul (0.0-0.1) Nucleated Red Blood Cells # 0.010^3/ul (0.0-0.0) MERVAT DUMONT Feb 10, 2017 13:42
[2017-02-10] MEDS ORDERED: FAMOTIDINE 20 MG INJ IV SCH (21:00)
== END 2017-02-10 13:30 | disposition left against medical advice (07) | DRG 379 ==
LOC: E/R 10:51 → TEL 15:49 → E/R 22:08 → TEL 22:19
PROVIDERS: ADMIT Internal Medicine; ATTEND Internal Medicine
DX: K92.0 Hematemesis (principal); I78.0 Hereditary hemorrhagic telangiectasia; D64.9 Anemia, unspecified; F17.210 Nicotine dependence, cigarettes, uncomplicated; Z59.0 Homelessness
CPT/HCPCS: 36415; 71010; 71275; 75635; 80053; 80306; 83880; 84484; 85025; 85610; 85730; 86850; 86900; 86901; 87081; 93005; 96374; 96375; C9113; J2270; J2765; Q9967

== ENCOUNTER 2017-02-16 17:56 | Inpatient (IN) | payer MEDICARE, OTHER ==
[~2017-02-16] VITALS: Ht 165.1 cm; Wt 64.0 kg
[2017-02-16 17:59] VITALS: Ht 165.1 cm; Wt 64.0 kg
[2017-02-16] MEDS ORDERED: SOD CHLORIDE 0.9% 1,000 ML IV STA (19:03)
[2017-02-16 19:19] LABS: BASOPHIL # 0.1 10^3/ul (0.0-0.1); BASOPHILS % 1.1 % (0.0-2.0); EOSINOPHILS # 0.2 10^3/ul (0.0-0.5); EOSINOPHILS % 3.2 % (0.0-7.0); HEMATOCRIT 42.8 % (42.0-52.0); HEMOGLOBIN 14.3 g/dl (14.0-18.0); LYMPHOCYTES # 1.5 10^3/ul (0.8-2.9); LYMPHOCYTES % 23.8 % (15.0-51.0); MEAN CORPUSCULAR HEMOGLOBIN 31.4 pg (29.0-33.0); MEAN CORPUSCULAR HGB CONC 33.4 g/dl (32.0-37.0); MEAN CORPUSCULAR VOLUME 93.9 fl (82.0-101.0); MEAN PLATELET VOLUME 10.7 fl (7.4-10.4); MONOCYTE # 0.7 10^3/ul (0.3-0.9); NEUTROPHILS % 60.6 % (39.0-77.0); PLATELET COUNT 228 10^3/UL (140-415); RED BLOOD COUNT 4.56 10^6/ul (4.70-6.10); RED CELL DISTRIBUTION WIDTH 13.9 % (11.5-14.5); WHITE BLOOD COUNT 6.3 10^3/ul (4.8-10.8)
[2017-02-16 19:22] LABS: INR 0.97; PROTIME 12.9 Sec (12.2-14.2)
[2017-02-16 19:23] LABS: PARTIAL THROMBOPLASTIN TIME 27.5 Sec (25.0-35.0)
[2017-02-16 19:30] LABS: ALANINE AMINOTRANSFERASE 58 IU/L (13-69); ALBUMIN/GLOBULIN RATIO 1.11; ALKALINE PHOSPHATASE 97 IU/L (42-121); ANION GAP 13 (8-16); ASPARTATE AMINO TRANSFERASE 40 IU/L (15-46); BILIRUBIN,INDIRECT 0.1 mg/dl (0-1.1); BILIRUBIN,TOTAL 0.1 mg/dl (0.2-1.3); BLOOD UREA NITROGEN 16 mg/dl (7-20); CALCIUM 8.9 mg/dl (8.4-10.2); CARBON DIOXIDE 29 mmol/L (21-31); CHLORIDE 107 mmol/L (97-110); CREATININE 1.16 mg/dl (0.61-1.24); ETHANOL < 10.0 mg/dl; GLUCOSE 94 mg/dl (70-220); POTASSIUM 4.3 mmol/L (3.5-5.1); SODIUM 145 mmol/L (135-144); TOTAL PROTEIN 7.6 g/dl (6.1-8.1)
[2017-02-16] MEDS ORDERED: FAMOTIDINE 20 MG INJ IV ONE (19:30)
[2017-02-16] MEDS ORDERED: OCTREOTIDE 50 MCG in SOD CHLORIDE 0.9% 25 ML IVPB STA (21:03)
[2017-02-16] MEDS ORDERED: OCTREOTIDE 500 MCG in SOD CHLORIDE 0.9% 49 ML IV STA (21:03)
--- NOTE | 2017-02-16 21:03 | ERA ---
ER Documentation Chief Complaint Date/Time DATE: 02/16/17 TIME: 20:58 Chief Complaint VOMITING BLOOD X 1 WEEK WITH ABD PAIN HPI This is a 66-year-old male here for hematemesis. 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 The patient was admitted February 08 for upper GI bleed and suddenly left AMA before an EGD was done. Patient's last EGD was 2012 showed some esophagitis and ulcers. Patient states he has been vomiting bright red blood for 1 day. Denies any NSAID use aspirin use and has a small half a glass of hard liquor on occasion he states. He says is not an alcoholic. Patient says he is vomited bright red blood 4 5 today. ROS All systems reviewed and are negative except as per history of present illness. Medications Home Meds No Active Prescriptions or Reported Meds Allergies Allergies: Coded Allergies: ondansetron (Verified Allergy, Intermediate, swelling to vein, 02/16/17) ibuprofen (Verified Allergy, Mild, 02/16/17) strawberry (Verified Allergy, Mild, 02/16/17) pantoprazole sodium (Verified Allergy, Unknown, 02/16/17) zolpidem (Verified Allergy, Unknown, 02/16/17) PMhx/Soc History of Surgery: No Anesthesia Reaction: No Hx Neurological Disorder: No Hx Respiratory Disorders: No Hx Cardiac Disorders: Yes (HTN) Hx Psychiatric Problems: No Hx Miscellaneous Medical Probl: Yes (ANEMIA;FALLS;CHRONIC PAIN;) Hx Alcohol Use: No (1 beer today after 20 yrs) Hx Substance Use: No Hx Tobacco Use: Yes Smoking Status: Current every day smoker FmHx Family History: No coronary disease Physical Exam Vitals Vital Signs Date Time Temp Pulse Resp B/P Pulse Ox O2 Delivery O2 Flow Rate FiO2 02/16/17 19:32 66 18 141/89 99 Room Air 02/16/17 17:59 98.1 78 18 155/86 96 Physical Exam Const: Well-developed, well-nourished Head: Atraumatic, normocephalic Eyes: Normal Conjunctiva, PERRLA, EOMI, normal sclera, no nystagmus ENT: Normal External Ears, Nose and Mouth, moist mucus membranes. Neck: Full range of motion. No meningismus, no lymphadenopathy. Resp: Clear to auscultation bilaterally, no wheezing, rhonchi, rales Cardio: Regular rate and rhythm, no murmurs, S1 S2 present Abd: Soft, some mild epigastric tenderness non distended. Normal bowel sounds, no guarding or rebound, no pulsitile abdominal masses or bruits patient refusing NG tube Const: Well-developed, well-nourished Head: Atraumatic, normocephalic Eyes: Normal Conjunctiva, PERRLA, EOMI, normal sclera, no nystagmus ENT: Normal External Ears, Nose and Mouth, moist mucus membranes. Neck: Full range of motion. No meningismus, no lymphadenopathy. Resp: Clear to auscultation bilaterally, no wheezing, rhonchi, rales Cardio: Regular rate and rhythm, no murmurs, S1 S2 present Abd: Soft, mild epigastric tenderness non distended. Normal bowel sounds, no guarding or rebound, no pulsitile abdominal masses or bruits Skin: No petechiae or rashes, no ecchymosis , no maculopapular rash Back: No midline or flank tenderness Ext: No cyanosis, or edema, FROM x 4, normal inspection, neurovascularly intact x 4 Neur: Awake and alert, STR 5/5 x 4, sensation intact x 4, no focal findings, cerebellum intact Psych: Normal Mood and Affect Skin: No petechiae or rashes, no ecchymosis , no maculopapular rash Back: No midline or flank tenderness Ext: No cyanosis, or edema, FROM x 4, normal inspection, neurovascularly intact x 4 Neur: Awake and alert, STR 5/5 x 4, sensation intact x 4, no focal findings, cerebellum intact Psych: Normal Mood and Affect Result Diagram: 02/16/17189902/16/171899 Results 24 hrs Laboratory Tests Test 02/16/17 19:00 White Blood Count 6.310^3/ul Red Blood Count 4.5610^6/ul Hemoglobin 14.3g/dl Hematocrit 42.8% Mean Corpuscular Volume 93.9fl Mean Corpuscular Hemoglobin 31.4pg Mean Corpuscular Hemoglobin Concent 33.4g/dl Red Cell Distribution Width 13.9% Platelet Count 30131^3/UL Mean Platelet Volume 10.7fl Neutrophils % 60.6% Lymphocytes % 23.8% Monocytes % 11.0% Eosinophils % 3.2% Basophils % 1.1% Nucleated Red Blood Cells % 0.0/100WBC Neutrophils # (Manual) 3.810^3/ul Lymphocytes # 1.510^3/ul Monocytes # 0.710^3/ul Eosinophils # 0.210^3/ul Basophils # 0.110^3/ul Nucleated Red Blood Cells # 0.010^3/ul Prothrombin Time 12.9Sec Prothrombin Time Ratio 1.0 INR International Normalized Ratio 0.97 Activated Partial Thromboplast Time 27.5Sec Sodium Level 145mmol/L Potassium Level 4.3mmol/L Chloride Level 107mmol/L Carbon Dioxide Level 29mmol/L Anion Gap 13 Blood Urea Nitrogen 16mg/dl Creatinine 1.16mg/dl Glucose Level 94mg/dl Calcium Level 8.9mg/dl Total Bilirubin 0.1mg/dl Direct Bilirubin 0.00mg/dl Indirect Bilirubin 0.1mg/dl Aspartate Amino Transf (AST/SGOT) 40IU/L Alanine Aminotransferase (ALT/SGPT) 58IU/L Alkaline Phosphatase 97IU/L Creatine Kinase 85IU/L Creatine Kinase Index 2.7 Creatinine Kinase MB (Mass) 2.27ng/ml Troponin I < 0.012ng/ml Total Protein 7.6g/dl Albumin 4.0g/dl Globulin 3.60g/dl Albumin/Globulin Ratio 1.11 Ethyl Alcohol Level < 10.0mg/dl Current Medications Medications (Trade) Dose Ordered Sig/Yeyo Route PRN Reason Start Time Stop Time Status Last Admin Dose Admin Sodium Chloride (NS) 1,000 ml @ 1,000 mls/hr Q1H STAT IV 02/16/17 19:03 02/16/17 20:02 DC 02/16/17 19:41 Famotidine 20 mg 20 mg ONCE ONCE IV 02/16/17 19:30 02/16/17 19:31 DC 02/16/17 19:43 Octreotide Acetate 50 mcg/ Sodium Chloride 26 ml @ 100 mls/hr Q16M STAT IVPB 02/16/17 21:03 02/16/17 21:18 DC Octreotide Acetate/Sodium Chloride (Sandostatin/NS) 50 ml @ 5 mls/hr ONCE STAT IV 02/16/17 21:03 02/17/17 07:02 Procedures/MDM The patient refused an NG tube. He says he is allergic to Protonix because of started it last time he developed some erythema streaking up his arm with swelling of the extremity patient will be admitted for upper GI bleed is been given Pepcid I will add octreotid, will consult Dr. gallagher/cristobal \ Departure Diagnosis: Primary Impression: Hematemesis Qualified Code: K92.0 - Hematemesis without nausea Additional Impression: Upper GI bleed Condition: Stable ASIM LANDRY DO Feb 16, 2017 21:03
[2017-02-16 21:13] LABS: CREATINE KINASE 85 IU/L (23-200)
--- NOTE | 2017-02-16 21:24 | CONS ---
Date/Time of Note Date/Time of Note DATE: 02/16/17 TIME: 21:14 Assessment/Plan Assessment/Plan Chief Complaint/Hosp Course Impression: 1. Fhvsr-Hnxyn-Nrlbz syndrome 2. hematemesis 3. h/o gastric ulcer 4. Recommendations: 1. no protonix as he has alleged protonix allergy. Thus we will administer H2 shon 2. monitor h/h and transfuse prn hgb less than 8 3. Problems: Consultation Date/Type/Reason Admit Date/Time Date of Consultation: Feb 16, 2017 Type of Consultation: GI Reason for Consultation hematemesis Hx of Present Illness 66-year-old homeless male who is hospitalized for hematemesis. 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 The patient was admitted February 08 for upper GI bleed and suddenly left AMA before an EGD was done. Patient's last EGD was 2012 showed some esophagitis and ulcers. Patient states he has been vomiting bright red blood for 1 day about 4- 5 total episodes. Denies any NSAID use aspirin use and has a small half a glass of hard liquor on occasion he states. The patient's hemoglobin hematocrit have remained stable. He is an extremely poor historian. At the present time the patient appears comfortable. Has nausea and vomiting. No melena. all point ros administered, pertinent positives and negatives in HPI otherwise negative. Past Medical History Medical History: GI bleed, other (Qadgv-Pipbt-Uggkd syndrome) Past Surgical History Past Surgical Hx: no surgical history Family History Significant Family History: no pertinent family hx Social History Alcohol Use: occasionally Smoking Status: Current every day smoker Drug Use: none Exam/Review of Systems Vital Signs Vitals Vital Signs Date Time Temp Pulse Resp B/P Pulse Ox O2 Delivery O2 Flow Rate FiO2 02/16/17 19:32 66 18 141/89 99 Room Air 02/16/17 17:59 98.1 Exam Constitutional: alert, oriented, well developed Psych: nl mood/affect, no complaints Head: atraumatic, normocephalic Eyes: EOMI, nl conjunctiva, nl lids ENMT: nl external ears & nose, nl lips & teeth, nl nasal mucosa & septum Neck: non-tender, supple Respiratory: clear to auscultation, normal air movement Cardiovascular: nl pulses, regular rate and rhythm Gastrointestinal: bowel sounds, non-tender, soft Musculoskeletal: nl extremities to inspection, nl gait and stance Neurological: nl mental status, nl speech, nl strength Results Result Diagram: 02/16/17189902/16/171899 Results 24 hrs Laboratory Tests Test 02/16/17 19:00 White Blood Count 6.3 # Red Blood Count 4.56 L Hemoglobin 14.3 Hematocrit 42.8 Mean Corpuscular Volume 93.9 Mean Corpuscular Hemoglobin 31.4 Mean Corpuscular Hemoglobin Concent 33.4 Red Cell Distribution Width 13.9 Platelet Count 228 Mean Platelet Volume 10.7 H Neutrophils % 60.6 Lymphocytes % 23.8 Monocytes % 11.0 Eosinophils % 3.2 Basophils % 1.1 Nucleated Red Blood Cells % 0.0 Neutrophils # (Manual) 3.8 Lymphocytes # 1.5 Monocytes # 0.7 Eosinophils # 0.2 Basophils # 0.1 Nucleated Red Blood Cells # 0.0 Prothrombin Time 12.9 Prothrombin Time Ratio 1.0 INR International Normalized Ratio 0.97 Activated Partial Thromboplast Time 27.5 Sodium Level 145 H Potassium Level 4.3 Chloride Level 107 Carbon Dioxide Level 29 Anion Gap 13 Blood Urea Nitrogen 16 Creatinine 1.16 Glucose Level 94 Calcium Level 8.9 Total Bilirubin 0.1 L Direct Bilirubin 0.00 Indirect Bilirubin 0.1 Aspartate Amino Transf (AST/SGOT) 40 Alanine Aminotransferase (ALT/SGPT) 58 Alkaline Phosphatase 97 Total Protein 7.6 Albumin 4.0 Globulin 3.60 H Albumin/Globulin Ratio 1.11 Ethyl Alcohol Level < 10.0 VAN CARLOS MD Feb 16, 2017 21:24
[2017-02-16 21:25] LABS: CK-MB 2.27 ng/ml (0.0-2.4); TROPONIN-I < 0.012 ng/ml (0.00-0.12)
[2017-02-16] MEDS ORDERED: SOD CHLORIDE 0.9% 1,000 ML IV SCH (22:08)
[2017-02-16] MEDS ORDERED: ACETAMINOPHEN 325 MG TAB PO PRN (22:30)
[2017-02-16 23:30] VITALS: PULSE 66
[2017-02-17 00:11] VITALS: BP 158/77; RESP 16
[2017-02-17 01:58] VITALS: BP 154/81; RESP 16
[2017-02-17] MEDS ORDERED: hydrALAzine 20 MG INJ IV PRN (02:00)
[2017-02-17] MEDS ORDERED: DEXTROSE 5%-0.45% NACL 1,000 ML IV SCH (02:00)
[2017-02-21] MEDS ORDERED: PROPOFOL 20 ML ONE (18:09)
[2017-02-21] MEDS ORDERED: MIDAZOLAM 1 MG/ML 2 ML INJ ONE (18:10)
[2017-02-21] MEDS ORDERED: FENTAnyl 50 MCG/ML VIAL ONE (18:10)
[2017-02-21] MEDS ORDERED: GLYCOPYRROLATE 0.4 MG INJ ONE (18:14)
== END 2017-02-17 02:15 | disposition left against medical advice (07) | DRG 379 ==
LOC: E/R 17:56 → MS2 22:09
PROVIDERS: ADMIT Internal Medicine; ATTEND Internal Medicine
DX: K92.0 Hematemesis (principal); I78.0 Hereditary hemorrhagic telangiectasia; I10 Essential (primary) hypertension; F17.210 Nicotine dependence, cigarettes, uncomplicated; Z59.0 Homelessness
CPT/HCPCS: 36415; 80053; 80306; 82550; 82553; 84484; 85025; 85610; 85730; 86850; 86900; 86901; 96365; 96375; 96376; J2354; J7030; J7042

== ENCOUNTER 2017-02-18 20:28 | Emergency (ER) | payer MEDICARE, OTHER | END 2017-02-18 23:42 | disposition left against medical advice (07) | LOC: E/R 20:28 | DX: Z53.21 Procedure and treatment not carried out due to patient leaving prior to being seen by health care provider (principal) ==

== ENCOUNTER 2017-02-20 22:54 | Inpatient (IN) | payer MEDICARE, OTHER ==
[~2017-02-20] VITALS: Ht 175.3 cm; Wt 64.0 kg
[2017-02-20] MEDS ORDERED: OCTREOTIDE 50 MCG in SOD CHLORIDE 0.9% 25 ML IVPB STA (23:14)
[2017-02-20] MEDS ORDERED: FAMOTIDINE 20 MG INJ IV STA (23:14)
[2017-02-20] MEDS ORDERED: SOD CHLORIDE 0.9% 500 ML IV STA (23:14)
[2017-02-20] MEDS ORDERED: OCTREOTIDE 500 MCG in SOD CHLORIDE 0.9% 49 ML IV STA (23:14)
[2017-02-20 23:28] LABS: BASOPHIL # 0.1 10^3/ul (0.0-0.1); BASOPHILS % 0.9 % (0.0-2.0); EOSINOPHILS # 0.2 10^3/ul (0.0-0.5); EOSINOPHILS % 3.4 % (0.0-7.0); HEMOGLOBIN 13.7 g/dl (14.0-18.0); LYMPHOCYTES # 1.4 10^3/ul (0.8-2.9); LYMPHOCYTES % 24.6 % (15.0-51.0); MEAN CORPUSCULAR HEMOGLOBIN 30.7 pg (29.0-33.0); MEAN CORPUSCULAR HGB CONC 32.6 g/dl (32.0-37.0); MEAN CORPUSCULAR VOLUME 94.2 fl (82.0-101.0); MEAN PLATELET VOLUME 10.3 fl (7.4-10.4); MONOCYTE # 0.8 10^3/ul (0.3-0.9); MONOCYTES % 14.3 % (0.0-11.0); NEUTROPHILS % 56.6 % (39.0-77.0); PLATELET COUNT 204 10^3/UL (140-415); RED BLOOD COUNT 4.46 10^6/ul (4.70-6.10); RED CELL DISTRIBUTION WIDTH 13.9 % (11.5-14.5); WHITE BLOOD COUNT 5.5 10^3/ul (4.8-10.8)
[2017-02-20] MEDS ORDERED: LIDOCAINE 2% VISC 15 ML CUP PO ONE (23:30)
--- NOTE | 2017-02-20 23:31 | ERA ---
ER Documentation Chief Complaint Date/Time DATE: 02/20/17 TIME: 23:27 Chief Complaint pt bib self with c/o vomiting blood , just here 2 days ago , HPI This is a 66-year-old homeless gentleman who presents to the emergency room complaining of hematemesis. The patient has 2 recent visits to the emergency room on February 16 and February 18. On the fifth visit the patient left without being seen. On the third he was evaluated in the emergency room but prior to GI evaluation he left the hospital AMA. There is no inpatient documentation at that time. The patient describes a history of Osler-[place]- Rendu. He states that he has had GI bleed in the past. He is describing hematemesis and melena. The patient states that his last episode of vomiting was in triage. He denies any chest pain or shortness of breath. ROS All systems reviewed and are negative except as per history of present illness. Allergies Allergies: Coded Allergies: ondansetron (Verified Allergy, Intermediate, swelling to vein, 02/16/17) ibuprofen (Verified Allergy, Mild, 02/16/17) strawberry (Verified Allergy, Mild, 02/16/17) pantoprazole sodium (Verified Allergy, Unknown, 02/16/17) zolpidem (Verified Allergy, Unknown, 02/16/17) PMhx/Soc History of Surgery: Yes (SEPTO DERMAL PLASTY) Anesthesia Reaction: No Hx Neurological Disorder: No Hx Respiratory Disorders: No Hx Cardiac Disorders: No Hx Psychiatric Problems: No (ANXIETY) Hx Miscellaneous Medical Probl: No Hx Alcohol Use: No Hx Substance Use: No Hx Tobacco Use: Yes FmHx Family History: No diabetes Physical Exam Vitals Vital Signs Date Time Temp Pulse Resp B/P Pulse Ox O2 Delivery O2 Flow Rate FiO2 02/20/17 23:00 97.9 73 27 138/83 99 Room Air 02/20/17 22:56 97.9 112 20 152/80 98 Physical Exam General: Well developed, well nourished, no acute distress Head: Normocephalic, atraumatic. Eyes: Pupils equally reactive, EOM intact ENT: Moist mucous membranes Neck: Supple, no lymphadenopathy Respiratory: Lungs clear bilaterally, no distress Cardiovascular: RRR, no murmurs, rubs, or gallops Abdominal: Soft, non-tender, non-distended, no peritoneal signs : Deferred MSK: No edema, no unilateral swelling, 5/5 strength Neurologic: Alert and oriented, moving all extremities, normal speech, no focal weakness, no cerebellar signs Skin: No rash Psych: Normal mood Result Diagram: 02/20/175 02/20/175 Results 24 hrs Laboratory Tests Test 02/20/17 23:15 White Blood Count 5.510^3/ul Red Blood Count 4.4610^6/ul Hemoglobin 13.7g/dl Hematocrit 42.0% Mean Corpuscular Volume 94.2fl Mean Corpuscular Hemoglobin 30.7pg Mean Corpuscular Hemoglobin Concent 32.6g/dl Red Cell Distribution Width 13.9% Platelet Count 10548^3/UL Mean Platelet Volume 10.3fl Neutrophils % 56.6% Lymphocytes % 24.6% Monocytes % 14.3% Eosinophils % 3.4% Basophils % 0.9% Nucleated Red Blood Cells % 0.0/100WBC Neutrophils # (Manual) 3.110^3/ul Lymphocytes # 1.410^3/ul Monocytes # 0.810^3/ul Eosinophils # 0.210^3/ul Basophils # 0.110^3/ul Nucleated Red Blood Cells # 0.010^3/ul Prothrombin Time 13.5Sec Prothrombin Time Ratio 1.1 INR International Normalized Ratio 1.03 Activated Partial Thromboplast Time 30.3Sec Sodium Level 140mmol/L Potassium Level 4.2mmol/L Chloride Level 106mmol/L Carbon Dioxide Level 26mmol/L Anion Gap 12 Blood Urea Nitrogen 18mg/dl Creatinine 1.14mg/dl Glucose Level 105mg/dl Calcium Level 9.0mg/dl Total Bilirubin 0.3mg/dl Direct Bilirubin 0.00mg/dl Indirect Bilirubin 0.3mg/dl Aspartate Amino Transf (AST/SGOT) 52IU/L Alanine Aminotransferase (ALT/SGPT) 68IU/L Alkaline Phosphatase 106IU/L Troponin I < 0.012ng/ml Total Protein 7.4g/dl Albumin 4.0g/dl Globulin 3.40g/dl Albumin/Globulin Ratio 1.17 Current Medications Medications (Trade) Dose Ordered Sig/Yeyo Route PRN Reason Start Time Stop Time Status Last Admin Dose Admin Sodium Chloride (NS) 500 ml @ 500 mls/hr Q1H STAT IV 02/20/17 23:14 02/21/17 00:13 DC 02/20/17 23:32 Famotidine 20 mg 20 mg ONCE STAT IV 02/20/17 23:14 02/20/17 23:17 DC 02/20/17 23:32 Octreotide Acetate 50 mcg/ Sodium Chloride 26 ml @ 100 mls/hr Q16M STAT IVPB 02/20/17 23:14 02/20/17 23:29 DC 02/21/17 00:19 Octreotide Acetate/Sodium Chloride (Sandostatin/NS) 50 ml @ 5 mls/hr ONCE STAT IV 02/20/17 23:14 02/21/17 09:13 02/21/17 00:36 Lidocaine (Xylocaine (Viscous)) 15 ml ONCE ONCE PO 02/20/17 23:30 02/20/17 23:31 DC 02/20/17 23:32 Acetaminophen (Tylenol Tab) 650 mg ER BRIDGE PRN PO MILD PAIN/FEVER 02/21/17 01:00 02/22/17 00:59 Procedures/MDM EKG, MONITORS, & DIAGNOSTIC IMAGING: EKG: I reviewed and interpreted a 12-lead EKG. Rhythm: Normal sinus rhythm Ectopy: None Intervals: No abnormalities ST segments: No elevations or depressions T waves: No contiguous inversions Chest x-ray: I reviewed and interpreted a 1 view of the chest Mediastinum: No enlargement Cardiac silhouette: No cardiomegaly Airspace: Clear lung self bilaterally without evidence of pneumothorax Bones: No evidence of fracture NG tube in good position LAB INTERPRETATION: Normal hemoglobin of 13.7, normal BUN to creatinine ratio MEDICAL DECISION MAKING: The patient is describing a history of Uhsyn-Mzgnc-Jlrau and a history of GI bleed. He is describing hematemesis. Patient was witnessed to have dark, coffee-ground emesis approximately 100 cc in triage. However, looking through the patient's electronic medical record his last endoscopy was in 2012 not describing any evidence of Jbktw-Kblmm-Lbiws or AV malformations in the gastric or esophageal region. There has been documented some suspicion of malingering in this patient. His recent hospitalization resulted in the patient rapidly leaving AGAINST MEDICAL ADVICE. There was no formal consultation by director heart at that time. No formal documentation by admitting team at that time. However the patient does have witnessed coffee-ground emesis. He will benefit from evaluation for upper GI bleed. He describes an allergy to PPI. Pepcid provided IV. Given history described of Fduko-Rjzol-Ubhlr, octreotide bolus and drip would be reasonable. No indication for antibiotics. No history described of cirrhosis. Suspicion for malingering remains. ER COURSE: NG lavage with small amount of pink bloody emesis that clears with irrigation. The patient's laboratory testing and diagnostic imaging is reassuring. The patient does not have evidence of active hemorrhage. Again unclear if the patient truly has Osler [place] Rendu but given the patient's NG lavage she would benefit from inpatient hospitalization and GI consultation. The patient was given Pepcid as well as octreotide bolus and drip. He is stable. I kept the patient and/or family informed of laboratory and diagnostic imaging results throughout the emergency room course. DISPOSITION PLAN: Medical surgical admission for management of upper GI bleed, stable Accepting care team and consultations: I discussed the current laboratory data, diagnostic imaging and emergency care provided. Admitting team: Dr. Avila Admitting team indication: Insurance directed Consulting services: Dr. Barros, gastroenterology was notified Departure Diagnosis: Primary Impression: Upper GI bleed Condition: Stable ANNALISE LAL MD Feb 20, 2017 23:31
[2017-02-20 23:52] LABS: INR 1.03; PROTIME 13.5 Sec (12.2-14.2); PT RATIO 1.1
[2017-02-20 23:53] LABS: PARTIAL THROMBOPLASTIN TIME 30.3 Sec (25.0-35.0)
[2017-02-20 23:55] LABS: ALANINE AMINOTRANSFERASE 68 IU/L (13-69); ALBUMIN/GLOBULIN RATIO 1.17; ALKALINE PHOSPHATASE 106 IU/L (42-121); ANION GAP 12 (8-16); ASPARTATE AMINO TRANSFERASE 52 IU/L (15-46); BILIRUBIN,INDIRECT 0.3 mg/dl (0-1.1); BILIRUBIN,TOTAL 0.3 mg/dl (0.2-1.3); BLOOD UREA NITROGEN 18 mg/dl (7-20); CARBON DIOXIDE 26 mmol/L (21-31); CHLORIDE 106 mmol/L (97-110); CREATININE 1.14 mg/dl (0.61-1.24); GLUCOSE 105 mg/dl (70-220); POTASSIUM 4.2 mmol/L (3.5-5.1); SODIUM 140 mmol/L (135-144); TOTAL PROTEIN 7.4 g/dl (6.1-8.1)
[2017-02-21] VITALS (7 sets, daily range): BP systolic 100–146; BP diastolic 63–74; PULSE 54–56; RESP 10–18; TEMP 98.1; Ht 175.3 cm; Wt 64.0 kg
[2017-02-21 00:12] LABS: TROPONIN-I < 0.012 ng/ml (0.00-0.12)
--- NOTE | 2017-02-21 00:55 | RADRPT ---
PROCEDURE: Portable chest x-ray. CLINICAL INDICATION: 66-year of age, male. NG placement. TECHNIQUE: Portable AP view of the chest. COMPARISON: None available. FINDINGS: There is an enteric tube with the tip over the gastric body. Atherosclerosis and tortuosity of the thoracic aorta. Normal heart size. Decreased lung volumes with vascular crowding. Mild left lung base opacity may represent atelectasis or aspiration. Negative for pleural effusion or pneumothorax. There is an old healed left rib fracture. Multilevel degenerative changes in spine. IMPRESSION: Enteric tube in good position with the tip over the gastric body. Mild left lung base opacity may represent atelectasis or aspiration. RPTAT: HCTS Physician Keturah Date Time Electronically viewed and signed by Aida Skinner Physician on 02/21/2017 00:54 CS/
[2017-02-21] MEDS ORDERED: ACETAMINOPHEN 325 MG TAB PO PRN ×2 (01:00→03:00)
[2017-02-21] MEDS ORDERED: ONDANSETRON 4 MG INJ IV PRN (03:00)
[2017-02-21] MEDS ORDERED: NACL 0.9% 3 ML SYG IV SCH (03:00)
[2017-02-21] MEDS ORDERED: morphine 2 MG INJ IV PRN (03:00)
[2017-02-21] MEDS ORDERED: LORAZEPAM 2 MG INJ IV PRN (03:00)
[2017-02-21] MEDS ORDERED: METOCLOPRAMIDE 10 MG INJ IV PRN (03:00)
[2017-02-21] MEDS: SOD CHLORIDE 0.9% 1,000 ML IV SCH ×2 (03:13→21:05)
[2017-02-21] MEDS ORDERED: PANTOPRAZOLE 40 MG INJ IV SCH (03:30)
[2017-02-21 06:08] LABS: HEMATOCRIT 41.4 % (42.0-52.0); HEMOGLOBIN 13.4 g/dl (14.0-18.0)
--- NOTE | 2017-02-21 06:08 | HP ---
Date/Time of Note Date/Time of Note DATE: 02/21/17 TIME: 06:01 Assessment/Plan VTE Prophylaxis VTE Prophylaxis Intervention: SCD's Assessment/Plan Chief Complaint/Hosp Course This is a 66-year-old male being admitted to the telemetry floor for: #1 hematemesis: NG tube in place, will check H&H every 6 hours. Give the patient n.p.o. Normal saline for IV fluid hydration. GI was contacted via the ED, will await for further recommendations. #2 Uwtap-Wfqzy-Kokbz: Unsure whether this could be contributing to the possible bleed at this time we will continue to monitor #3 DVT and GI prophylaxis: SCDs/Pepcid as patient is apparently allergic to pantoprazole. Further treatment strategy will be implemented as per the clinical course. Problems: HPI/ROS Admit Date/Time Admit Date/Time Hx of Present Illness Chief complaint: Hematemesis This is a 66-year-old homeless gentleman who presents to the emergency room complaining of hematemesis. The patient describes a history of Osler-[place]- Rendu. He states that he has had GI bleed in the past. He is describing hematemesis and melena. The patient states that his last episode of vomiting was in triage. He denies any chest pain or shortness of breath. Patient denies any alcohol use. Of note based on the ED physician documentation, the patient had 2 recent visits to the emergency room on February 16 and February 18. On the fifth visit the patient left without being seen. On the third he was evaluated in the emergency room but prior to GI evaluation he left the hospital AMA. Allergies: Ibuprofen, ondansetron, pantoprazole, strawberry, Ambien ROS Const: Negative for fever, chills, weight gain or weight loss, fatigue, or diaphoresis Eyes : No pain discharge or redness or change in visual acuity ENT: No pain, sore throat, congestion, congestion, dysphagia or discharge Respiratory: No shortness of breath, cough, sputum, wheezing, or pleuritic pain Cardiovascular: No chest pain, palpitation, PND, or edema GI : As per HPI Genitourinary: No dysuria, hematuria, flank pain , discharge or CVA tenderness Musculoskeletal: No joint pain, back pain, neck pain, restricted range of motion in neck or joints Skin: No rash, bruising or hives Neuro: No headache, dizziness, syncope, seizure, focal weakness Endocrine: No polyuria, polydipsia, temperature intolerance Psych: No hallucination, depression, anxiety or suicidal ideation PMH/Family/Social Past Medical History Jxosv-Pakjg-Lgcdu, skin graft in the nose Past Surgical History Skin graft of the nose, right britt surgery Family History Significant Family History: no pertinent family hx Social History Smoking Status: Current every day smoker (6 cigarettes per day 10 years) Exam/Review of Systems Vital Signs Vitals Vital Signs Date Time Temp Pulse Resp B/P Pulse Ox O2 Delivery O2 Flow Rate FiO2 02/21/17 04:00 98.5 68 22 163/95 98 Room Air Exam Exam General: Patient is a disheveled male lying in bed in no acute distress HEENT: Atraumatic/normocephalic. There appears to be some blood in the naris, NG tube in place. Oral cavity does not appear to have any blood Neck: Supple with full range of motion. No rigidity or meningismus Chest: Nontender Lungs: Clear to auscultation bilaterally no crackles rales or wheezing Heart: Normal S1-S2, Regular rhythm and rate. Abdomen: Soft, mild tenderness palpation of the epigastric region, normal bowel sounds Extremities: Normal to inspection, no edema no cyanosis Neurologic: Normal mental status, speech normal, cranial nerves II through XII are intact, motor and sensory are intact, no focal weakness Additional Comments PROCEDURE: Portable chest x-ray. CLINICAL INDICATION: 66-year of age, male. NG placement. TECHNIQUE: Portable AP view of the chest. COMPARISON: None available. FINDINGS: There is an enteric tube with the tip over the gastric body. Atherosclerosis and tortuosity of the thoracic aorta. Normal heart size. Decreased lung volumes with vascular crowding. Mild left lung base opacity may represent atelectasis or aspiration. Negative for pleural effusion or pneumothorax. There is an old healed left rib fracture. Multilevel degenerative changes in spine. IMPRESSION: Enteric tube in good position with the tip over the gastric body. Mild left lung base opacity may represent atelectasis or aspiration. RPTAT: HCTS Aida Skinner Physician Date Time Electronically viewed and signed by Aida Skinner Physician on 02/21/2017 00: 54 CS/ Labs Result Diagram: 02/20/17231402/20/175 Medications Medications Current Medications Sodium Chloride (NS) 1,000 ml @ 70 mls/hr [id number] IV Last administered on 03:13; Admin Dose 70 MLS/HR; Start 02/21/17 at 02:37 Lorazepam (Ativan) 0.5 mg Q6H PRN IV ANXIETY; Start 02/21/17 at 03:00 Metoclopramide HCl (Reglan) 10 mg Q6H PRN IV NAUSEA AND/OR VOMITING; Start 02/21 at 03:00 Acetaminophen (Tylenol Tab) 650 mg Q6H PRN PO PAIN LEVEL 1-3 OR FEVER; Start at 03:00 Morphine Sulfate (morphine) 2 mg Q4H PRN IV PAIN LEVEL 7-10 Last administered on 02/21/17 03:58; Admin Dose 2 MG; Start 02/21/17 at 03:00 Pantoprazole (Protonix Iv) 40 mg BID@06,18 IV Last administered on 02/21/17 03: 58; Admin Dose 40 MG; Start 02/21/17 at 03:30 BALAJI MITCHELL Feb 21, 2017 06:08
[2017-02-21] MEDS: FAMOTIDINE 20 MG INJ IV SCH ×2 (06:25→21:05)
[2017-02-21 06:48] LABS: CHOL/HDL RATIO 2.4 RATIO; MAGNESIUM 1.8 mg/dl (1.7-2.5)
[2017-02-21 07:15] LABS: THYROID STIMULATING HORMONE 0.61 MIU/L (0.465-4.680)
--- NOTE | 2017-02-21 12:43 | QN ---
Documentation Comment Examined pt in the emergency room. There is no further vomiting. Pending GI evaluation. Patient is currently receiving Sandostatin ordered from the emergency room. We will follow-up with GI recommendations. Patient's H&H remained stable. He does not have any abdominal discomfort. There is no hematochezia, hematemesis, or melena. Patient was seen in collaboration with . AMBER MENJIVAR NP Feb 21, 2017 12:43
[2017-02-21 13:34] LABS: HEMATOCRIT 41.5 % (42.0-52.0); HEMOGLOBIN 13.6 g/dl (14.0-18.0)
[2017-02-21] MEDS ORDERED: NICOTINE (7 MG/24 HR) PATCH TRANSDERM ONE (14:30)
[2017-02-21] MEDS ORDERED: MIDAZOLAM 1 MG/ML 2 ML INJ ONE (18:00)
[2017-02-21] MEDS ORDERED: PROPOFOL 200 MG INJ ONE (18:00)
[2017-02-21] MEDS ORDERED: FENTAnyl 50 MCG/ML VIAL ONE (18:00)
--- NOTE | 2017-02-21 18:15 | CONS ---
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 The patient has had multiple hospitalizations with similar complaints of hematemesis however he has never dropped his hemoglobin below 13. When he has been ready for evaluation in the past he signed out AMA. He again presented to the emergency room complaining of hematemesis. An NG tube was placed and pinkish fluid was noticed exiting the patch. Patient's hemoglobin is about 13 nevertheless given the presence of blood in the NG tube emergency room physician decided to admit the patient one more time for further evaluation. The patient has remained in the emergency room and will be brought to the GI lab directly to proceed with endoscopic examination and subtle the possibility of gastrointestinal bleeding. His hemoglobin has remained stable therefore bleeding appears not to be thickened and quantity. 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 There is clear suggestion of polysubstance abuse and may be organic brain syndrome is an underlying condition. 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 Organic brain syndrome Hypertension Social History Smoking Status: Current every day smoker (6 cigarettes per day 10 years) Exam/Review of Systems Vital Signs Vitals Vital Signs Date Time Temp Pulse Resp B/P Pulse Ox O2 Delivery O2 Flow Rate FiO2 02/21/17 17:29 Nasal Cannula 02/21/17 12:00 60 18 131/76 99 02/21/17 08:00 98.1 Exam Constitutional: alert, oriented, other (Poorly groomed), well developed Psych: nl mood/affect, no complaints Head: atraumatic, normocephalic Eyes: EOMI, PERRL, nl conjunctiva, nl lids, nl sclera ENMT: nl external ears & nose, nl lips & teeth, nl nasal mucosa & septum Neck: non-tender, supple Respiratory: clear to auscultation, normal air movement Cardiovascular: nl pulses, regular rate and rhythm Gastrointestinal: bowel sounds, nl liver, spleen, non-tender, soft, No ascites, No distended, No hepatomegaly, No mass, No rebound or guarding Musculoskeletal: nl extremities to inspection, nl gait and stance Extremities: normal pulses Skin: nl turgor, No rash or lesions Lymph: nl lymph nodes Results Result Diagram: 02/21/17 1305 02/20/17 2315 Results 24 hrs Laboratory Tests Test 02/20/17 23:15 02/21/17 05:30 02/21/17 13:05 White Blood Count 5.5 Red Blood Count 4.46 L Hemoglobin 13.7 L 13.4 L 13.6 L Hematocrit 42.0 41.4 L 41.5 L Mean Corpuscular Volume 94.2 Mean Corpuscular Hemoglobin 30.7 Mean Corpuscular Hemoglobin Concent 32.6 Red Cell Distribution Width 13.9 Platelet Count 204 Mean Platelet Volume 10.3 Neutrophils % 56.6 Lymphocytes % 24.6 Monocytes % 14.3 H Eosinophils % 3.4 Basophils % 0.9 Nucleated Red Blood Cells % 0.0 Neutrophils # (Manual) 3.1 Lymphocytes # 1.4 Monocytes # 0.8 Eosinophils # 0.2 Basophils # 0.1 Nucleated Red Blood Cells # 0.0 Prothrombin Time 13.5 Prothrombin Time Ratio 1.1 INR International Normalized Ratio 1.03 Activated Partial Thromboplast Time 30.3 Sodium Level 140 Potassium Level 4.2 Chloride Level 106 Carbon Dioxide Level 26 Anion Gap 12 Blood Urea Nitrogen 18 Creatinine 1.14 Glucose Level 105 Calcium Level 9.0 Total Bilirubin 0.3 Direct Bilirubin 0.00 Indirect Bilirubin 0.3 Aspartate Amino Transf (AST/SGOT) 52 H Alanine Aminotransferase (ALT/SGPT) 68 Alkaline Phosphatase 106 Troponin I < 0.012 Total Protein 7.4 Albumin 4.0 Globulin 3.40 H Albumin/Globulin Ratio 1.17 Hemoglobin A1c 5.9 Magnesium Level 1.8 Triglycerides Level 39 Cholesterol Level 144 LDL Cholesterol, Calculated 76 HDL Cholesterol 60 Cholesterol/HDL Ratio 2.4 Thyroid Stimulating Hormone (TSH) 0.610 Medications Medications Current Medications Sodium Chloride (NS) 1,000 ml @ 70 mls/hr [id number] IV Last administered on 03:13; Admin Dose 70 MLS/HR; Start 02/21/17 at 02:37 Lorazepam (Ativan) 0.5 mg Q6H PRN IV ANXIETY; Start 02/21/17 at 03:00 Metoclopramide HCl (Reglan) 10 mg Q6H PRN IV NAUSEA AND/OR VOMITING; Start 02/21 at 03:00 Acetaminophen (Tylenol Tab) 650 mg Q6H PRN PO PAIN LEVEL 1-3 OR FEVER; Start at 03:00 Morphine Sulfate (morphine) 2 mg Q4H PRN IV PAIN LEVEL 7-10 Last administered on 02/21/17 03:58; Admin Dose 2 MG; Start 02/21/17 at 03:00 Famotidine (Pepcid Iv) 20 mg BID IV Last administered on 02/21/17 06:25; Admin Dose 20 MG; Start 02/21/17 at 06:15 ADRIENNE ESCOBAR MD Feb 21, 2017 18:14
--- NOTE | 2017-02-21 18:30 | OPPN ---
Date/Time of Note Date/Time of Note DATE: 02/21/17 TIME: 18:24 Proc Note GI Procedure date: Feb 21, 2017 Pre-procedure Diagnosis * GI bleeding/hematemesis Post-procedure Diagnosis Assessment: * Grade I/IV esophageal varices, no stigmata. 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 No bleeding. Too many to attempt eradication * Moderate gastritis. Rule out H. pylori infection biopsies obtained * Duodenitis Plan: * PPI therapy * Review biopsies * Advance diet as tolerated * Abstinence * Considered outpatient management if hemoglobin remains stable Operation Performed * EGD with biopsies Surgeon: ADRIENNE ESCOBAR MD Anesthesia Type: MAC Anesthesiologist: NGUYEN MUELLER MD Estimated blood loss: none Transfusion Required: no Specimens Gastric antrum Grafts/Implants: none Complications: no Pt Condition post procedure: stable Disposition: PACU Procedure Description After informed consent, with the patient/relatives understanding the procedure, its indications, potential risks and complications, including but not limited to : allergic reaction, bleeding, perforation or infection, and after all pertinent questions were answered to the patients satisfaction, the patient/ relatives signed witnessed informed consent. Following this, premedication was administered slowly IV push under careful cardiovascular and respiratory monitoring with pulse oximetry, automatic blood pressure, and hogshead head matcher. Once the sedative effect was achieved the patient was place in the left lateral decubitus, the panendoscope was introduced and advanced under visual control. Careful examination of the upper gastrointestinal tract, both on insertion as well as withdrawal of the instrument disclosing the following findings: ESOPHAGUS: the mucosa of the entire esophagus was carefully examined and showed the following findings: There are grade I/IV esophageal varices, no stigmata. No intervention indicated. Otherwise the mucosa appears within normal limits. There is no evidence of esophagitis, neoplasm, or stricture. No Hiatal Hernia identified. STOMACH: Upon entrance to the stomach air was insufflated, the gastric collier distended normally. The mucosa of the fundus, body and antrum of the stomach was carefully examined both head-on and on retroflexion, and showed the following findings: Multiple small AVMs/telangiectasia in the proximal stomach. None bleeding. Too many to attempt cauterization. There is moderate erythema of the antrum the stomach biopsies were obtained to rule out H. pylori infection. Otherwise the mucosa appears within normal limits with no abnormalities. There is no evidence of ulcers or neoplasm. PYLORUS: The pylorus was carefully examined and showed the following findings: the pylorus appears patent and within normal limits, with no evidence of gastric outlet obstruction. DUODENUM: The duodenal mucosa was carefully examined in the duodenal bulb as well as the second portion of the duodenum and showed the following findings: There is erythema and edema of the mucosa of the duodenal bulb. No definitive ulceration is present. No active bleeding. Otherwise the mucosa appears unremarkable with no evidence of duodenitis, ulcer or neoplasm. ADRIENNE ESCOBAR MD Feb 21, 2017 18:30
[2017-02-21 20:20] LABS: HEMATOCRIT 41.5 % (42.0-52.0); HEMOGLOBIN 13.3 g/dl (14.0-18.0)
[2017-02-22 01:34] VITALS: BP 93/64; RESP 18
[2017-02-22] MEDS: SOD CHLORIDE 0.9% 1,000 ML IV SCH (07:13)
[2017-02-22 07:32] VITALS: BP 140/69; RESP 18
--- NOTE | 2017-02-22 08:36 | PDOCDIS ---
Discharge Instructions CONDITION Patient Condition: Stable HOME CARE INSTRUCTIONS: Diet Instructions: Regular FOLLOW UP/APPOINTMENTS Follow-up Plan 1.Follow-up with for Biopsy result.Call office on Friday [facility] [place] [address] Office 2.Follow up with primary care physician in 1 week If you don't have one please let someone know, we can give you resources that may help you pick one. You may also call your insurance company to assign one to you. Review your medication list with your nurse before leaving and if you need new prescriptions please let your nurse know. I may have made changes to your home medications or given you new prescriptions, please let your primary doctor know as well. Stay compliant with your medications and report any side effects to your PCP or pharmacist. Return to the ER if you have any concerns and cannot reach your doctors or call your insurance company, they usually have a nurse that can help you. 3. Call 911 or go to the nearest emergency room if experiencing loss of consciousness, dizziness, chest pain, shortness of breath, vomiting/abdominal pain, speech difficulties, motor weakness or any unusual symptoms. AMBER MENJIVAR NP Feb 22, 2017 08:36
[2017-02-22] MEDS ORDERED: FAMO-96 PO (08:38)
[2017-02-22] MEDS: FAMOTIDINE 20 MG INJ IV SCH (09:08)
--- NOTE | 2017-02-22 10:39 | PN ---
Date/Time of Note Date/Time of Note DATE: 02/22/17 TIME: 10:35 Assessment/Plan VTE Prophylaxis VTE Prophylaxis Intervention: SCD's Lines/Catheters IV Catheter Type (from Nrs): Peripheral IV Assessment/Plan Assessment/Plan Assessment: * Grade I/IV esophageal varices, no stigmata. 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 No bleeding. Too many to attempt eradication * Moderate gastritis. Rule out H. pylori infection biopsies obtained * Duodenitis Plan: * PPI therapy * stable for outpatient management * case discussed with Dr Barros Subjective 24 Hr Interval Summary Free Text/Dictation * course reviewed with RN * S/P EGD Grade I/IV esophageal varices, no stigmata. 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 No bleeding. Too many to attempt eradication Moderate gastritis. Rule out H. pylori infection biopsies obtained Duodenitis * No untoward events overnight Exam/Review of Systems Vital Signs Vitals Vital Signs Date Time Temp Pulse Resp B/P Pulse Ox O2 Delivery O2 Flow Rate FiO2 02/22/17 07:32 98.6 52 18 140/69 95 02/21/17 18:47 Mask 8.0 Intake and Output 02/21/17 02/21/17 02/22/17 15:00 23:00 07:00 Intake Total 140 ml 420 ml Balance 140 ml 420 ml Exam Constitutional: alert, oriented Neck: non-tender, supple Respiratory: clear to auscultation, normal air movement Cardiovascular: nl pulses, regular rate and rhythm Gastrointestinal: non-tender, soft Musculoskeletal: nl extremities to inspection, nl gait and stance Extremities: normal pulses Neurological: nl speech, nl strength Skin: nl turgor, No rash or lesions Results Result Diagram: 02/21/17194402/20/172314 Results 24 hrs Laboratory Tests Test 02/21/17 13:05 02/21/17 19:45 Hemoglobin 13.6 L 13.3 L Hematocrit 41.5 L 41.5 L Medications Medications Current Medications Sodium Chloride (NS) 1,000 ml @ 70 mls/hr [id number] IV Last administered on t 21:05; Admin Dose 70 MLS/HR; Start 02/21/17 at 02:37 Lorazepam (Ativan) 0.5 mg Q6H PRN IV ANXIETY; Start 02/21/17 at 03:00 Metoclopramide HCl (Reglan) 10 mg Q6H PRN IV NAUSEA AND/OR VOMITING; Start 02/21 at 03:00 Acetaminophen (Tylenol Tab) 650 mg Q6H PRN PO PAIN LEVEL 1-3 OR FEVER; Start at 03:00 Morphine Sulfate (morphine) 2 mg Q4H PRN IV PAIN LEVEL 7-10 Last administered on 02/21/17 03:58; Admin Dose 2 MG; Start 02/21/17 at 03:00 Famotidine (Pepcid Iv) 20 mg BID IV Last administered on 02/22/17 09:08; Admin Dose 20 MG; Start 02/21/17 at 06:15 JANICE SIDHU NP Feb 22, 2017 10:39
--- NOTE | 2017-02-22 10:41 | DS ---
DATE OF ADMISSION: 02/21/2017 DATE OF DISCHARGE: 02/22/2017 LAP LAYER: Dr. Barros, from Gastroenterology. FINAL DIAGNOSES: 1. Reported small hematemesis. Status post-endoscopy with multiple telangiectatic disease/arteriovenous malformation in the proximal stomach without any bleeding. Moderate gastritis and duodenitis. 2. Arteriovenous malformation stable. HOSPITAL COURSE: This is a 56-year-old, homeless male, with multiple hospitalizations for similar complaints of hematemesis, who presented to the Emergency room for evaluation of mild hematemesis which started the day before admission. The patient was evaluated multiple times for this and he has signed out against medical advice with his previous admission. In the emergency room there was no hematemesis noted. His H and H remained stable. The patient also had an NG-tube placed, there was no significant bleeding noted with the NG tube as well. The patient continued to report abdominal pain. He was admitted for further evaluation. The patient had allergy to proton pump inhibitors, therefore, he was started on Pepcid IV. The patient also reported a history of hereditary telangiectasia, he was evaluated by Gastroenterology. Patient had undergone endoscopy on 02/21/2017 with findings of gastritis and duodenitis. There was also multiple telangiectatic/AVMs in the proximal stomach but there was no bleeding. As per gastroenterology, the patient needs PPI therapy for 6 weeks and he can be monitored as outpatient. Patient reported allergy to PPI and therefore recommendation was H2 Blockers. There is no further inpatient workup indicated. There was no further upper or lower GI bleed noted, while patient was in the hospital. He was able to tolerate diet and activities. The patient is medically stable for discharge. DISPOSITION: Patient will be discharged home today. dental laboratory worker consult was also ordered prior to discharge for providing him with homelessness resources. However, patient refused homelessness resources and wanted to go back to the streets. The patient was given the phone number to call Dr. Barros and office address to follow-up on endoscopy biopsy report, and advised that he will have to start treatment if pathology is positive for infection. The patient verbalized understanding. DIAGNOSTIC DATA: On 02/21/2017: Hemoglobin 13.3, hematocrit 41.5. On 02/20/2017: Sodium 140, potassium 4.2, BUN 18, creatinine 1.14 and glucose 105. On 02/21/2017: Endoscopy, grade 1 out of 4 esophageal varices, no stigmata, no intervention. Multiple telangiectasis/AVMs in the proximal stomach. No bleeding. Moderate gastritis, rule out H pylori infection, biopsies obtained, duodenitis. DISCHARGE MEDICATIONS: Pepcid 20 mg orally twice daily for 6 weeks. At this time, I would like to thank Dr. Barros for seeing the patient, providing medical recommendation, and performing the appropriate procedures on this patient. CRITICAL CARE: Approximately, 60 minute was spent in coordinating the discharge of this patient. CONDITION ON DISCHARGE: STABLE. Patient was seen in collaboration with . Dictated By: Marta Kay NP /britta/kevin /Document#: [id number] EDIS
== END 2017-02-22 14:14 | disposition home or self-care (01) | DRG 378 ==
LOC: E/R 22:54 → SDS 02-21 17:17 → MS2 02-21 20:55
PROVIDERS: ADMIT Internal Medicine Pulmonary Disease; ATTEND Internal Medicine Pulmonary Disease
PROC: 0DB68ZX Excision of Stomach, Via Natural or Artificial Opening Endoscopic, Diagnostic (ICD-10-PCS; principal; 2017-02-21 21:35)
DX: K92.0 Hematemesis (principal); Q27.30 Arteriovenous malformation, site unspecified; I78.0 Hereditary hemorrhagic telangiectasia; K29.70 Gastritis, unspecified, without bleeding; K29.80 Duodenitis without bleeding; I85.00 Esophageal varices without bleeding; Z59.0 Homelessness
CPT/HCPCS: 36415; 71010; 80053; 80061; 83036; 83735; 84443; 84484; 85014; 85018; 85025; 85610; 85730; 86850; 86900; 86901; 87081; 88305; 88312; 93005; 96365; 96366; 96375; 96376; C9113; J2250; J2270; J2354; J3010; J7030; J7040

== ENCOUNTER 2017-03-06 23:21 | Inpatient (IN) | payer MEDICARE, OTHER ==
[~2017-03-06] VITALS: Ht 172.7 cm; Wt 70.0 kg
[~2017-03-06 23:21] MED LIST changes: -ACET500C5 PO; +FAMO-96 PO
--- NOTE | 2017-03-06 23:36 | ERA ---
ER Documentation Chief Complaint Date/Time DATE: 03/06/17 TIME: 23:36 Chief Complaint c/o actively vomiting blood with abd pain HPI The patient is a 66-year-old male, presenting to the ER because of recurrent abdominal pain about 12 PM, hematemesis about 3 PM. He has similar symptoms previously. He was admitted on February 21, 2017 for similar symptoms. He had an EGD that showed gastritis, duodenitis, grade 1 esophageal varices, gastric AVM/telangiectasis that did not require any intervention. He was treated conservatively and discharged with Pepcid. He denies syncope, near syncope, neck pain, chest pain, dyspnea, dysuria, diarrhea. He denies smoking or drinking no using illicit drugs Past medical history: Vrfms-Xfhud-Vdbwa ROS All systems reviewed and are negative except as per history of present illness. Medications Home Meds Active Scripts Famotidine* (Pepcid*) 20 Mg Tablet, 20 MG PO BID, #90 TAB Prov:AMBER MENJIVAR V. NON DESTRUCTIVE TESTING ENGINEER 02/22/17 Allergies Allergies: Coded Allergies: ondansetron (Unverified Allergy, Intermediate, swelling to vein, 03/07/17) ibuprofen (Unverified Allergy, Mild, 03/07/17) strawberry (Unverified Allergy, Mild, 03/07/17) pantoprazole sodium (Unverified Allergy, Unknown, 03/07/17) zolpidem (Unverified Allergy, Unknown, 03/07/17) PMhx/Soc History of Surgery: Yes (SKIN GRAFT LEG TO NOSE REPAIR) Anesthesia Reaction: No Hx Neurological Disorder: No Hx Respiratory Disorders: No Hx Cardiac Disorders: No Hx Psychiatric Problems: No Hx Miscellaneous Medical Probl: No Hx Alcohol Use: Yes Hx Substance Use: Yes Hx Tobacco Use: No Physical Exam Vitals Vital Signs Date Time Temp Pulse Resp B/P Pulse Ox O2 Delivery O2 Flow Rate FiO2 03/06/17 23:24 98.5 72 20 184/82 94 Physical Exam Const: No acute distress. Head: Atraumatic. Eyes: Normal Conjunctiva. ENT: Normal External Ears, Nose and Mouth. Neck: Full range of motion. No meningismus. Resp: Clear to auscultation bilaterally. Cardio: Regular rate and rhythm. Abd: Soft, non distended, normal bowel sounds, Mild and vague diffuse abdominal discomfort, no rigidity, rebound, CVA tenderness. Skin: No petechiae or rashes. Back: No midline or flank tenderness. Ext: No cyanosis, or edema. Neur: Awake and alert. No focal deficit Psych: Normal Mood and Affect. Result Diagram: 03/07/17 0025 03/07/17 0025 Results 24 hrs Laboratory Tests Test 03/07/17 00:25 White Blood Count 5.310^3/ul Red Blood Count 4.3610^6/ul Hemoglobin 13.0g/dl Hematocrit 41.2% Mean Corpuscular Volume 94.5fl Mean Corpuscular Hemoglobin 29.8pg Mean Corpuscular Hemoglobin Concent 31.6g/dl Red Cell Distribution Width 14.5% Platelet Count 05482^3/UL Mean Platelet Volume 10.6fl Neutrophils % 66.5% Lymphocytes % 19.3% Monocytes % 9.3% Eosinophils % 3.4% Basophils % 1.3% Nucleated Red Blood Cells % 0.0/100WBC Neutrophils # 3.510^3/ul Lymphocytes # 1.010^3/ul Monocytes # 0.510^3/ul Eosinophils # 0.210^3/ul Basophils # 0.110^3/ul Nucleated Red Blood Cells # 0.010^3/ul Prothrombin Time 13.0Sec Prothrombin Time Ratio 1.0 INR International Normalized Ratio 0.98 Activated Partial Thromboplast Time 29.2Sec Sodium Level 139mmol/L Potassium Level 4.6mmol/L Chloride Level 103mmol/L Carbon Dioxide Level 29mmol/L Anion Gap 12 Blood Urea Nitrogen 18mg/dl Creatinine 0.96mg/dl Glucose Level 80mg/dl Calcium Level 8.7mg/dl Total Bilirubin 0.6mg/dl Direct Bilirubin 0.00mg/dl Indirect Bilirubin 0.6mg/dl Aspartate Amino Transf (AST/SGOT) 62IU/L Alanine Aminotransferase (ALT/SGPT) 71IU/L Alkaline Phosphatase 95IU/L Total Protein 7.4g/dl Albumin 4.0g/dl Globulin 3.40g/dl Albumin/Globulin Ratio 1.17 Lipase 122U/L Urine Opiates Screen Negative Urine Barbiturates Negative Urine Amphetamines Screen POSITIVE Urine Benzodiazepines Screen Negative Urine Cocaine Screen Negative Urine Cannabinoids Negative Ethyl Alcohol Level < 10.0mg/dl Current Medications Medications (Trade) Dose Ordered Sig/Yeyo Route PRN Reason Start Time Stop Time Status Last Admin Dose Admin Famotidine (Pepcid Iv) 20 mg ONCE ONCE IV 03/07/17 00:00 03/07/17 00:01 DC 03/07/17 00:19 Procedures/MDM MEDICAL MAKING DECISION: The patient is a 66-year-old male, presenting with acute hematemesis, acute amphetamine abuse. He was treated with Pepcid 20 mg IV because he is allergic to PPI. I have ordered for a nasogastric tube but the patient declined. Risks, benefits, alternatives were explained to the patient. Risks include but not limited to and permanent disability The differential diagnoses considered include but are not limited to esophageal varices, acute gastrointestinal bleeding, acute bleeding from gastric AVM/ telangiectasis, cholelithiasis, cholecystitis, cystitis, pancreatitis, hepatitis , gastritis, peptic ulcer disease, gastric ulcer, appendicitis, diverticulitis, cholangitis, choledocholithiasis, partial small bowel obstruction. Departure Diagnosis: Primary Impression: Hematemesis Additional Impressions: Amphetamine abuse Transaminitis Condition: Stable Comments I discussed the findings with the patient. I discussed the patient with the on- call hospitalist Dr. Avila at who was made aware of the lab, the treatment, the patient condition. The patient is admitted to [facility] The patient's blood pressure was elevated (>120/80) but appears stable without evidence of hypertension emergency or urgency. The patient was counseled about the risks of hypertension and urged to pursue outpatient monitoring and therapy within a week with their primary care physician. SHIRA GABRIEL MD Mar 06, 2017 23:36
[2017-03-07] MEDS ORDERED: FAMOTIDINE 20 MG INJ IV ONE
[2017-03-07 00:51] LABS: BASOPHIL # 0.1 10^3/ul (0.0-0.1); BASOPHILS % 1.3 % (0.0-2.0); EOSINOPHILS # 0.2 10^3/ul (0.0-0.5); EOSINOPHILS % 3.4 % (0.0-7.0); HEMATOCRIT 41.2 % (42.0-52.0); LYMPHOCYTES % 19.3 % (15.0-51.0); MEAN CORPUSCULAR HEMOGLOBIN 29.8 pg (29.0-33.0); MEAN CORPUSCULAR HGB CONC 31.6 g/dl (32.0-37.0); MEAN CORPUSCULAR VOLUME 94.5 fl (82.0-101.0); MEAN PLATELET VOLUME 10.6 fl (7.4-10.4); MONOCYTE # 0.5 10^3/ul (0.3-0.9); MONOCYTES % 9.3 % (0.0-11.0); NEUTROPHIL # 3.5 10^3/ul (1.6-7.5); NEUTROPHILS % 66.5 % (39.0-77.0); PLATELET COUNT 232 10^3/UL (140-415); RED BLOOD COUNT 4.36 10^6/ul (4.70-6.10); RED CELL DISTRIBUTION WIDTH 14.5 % (11.5-14.5); WHITE BLOOD COUNT 5.3 10^3/ul (4.8-10.8)
[2017-03-07 01:23] LABS: ALANINE AMINOTRANSFERASE 71 IU/L (13-69); ALBUMIN/GLOBULIN RATIO 1.17; ALKALINE PHOSPHATASE 95 IU/L (42-121); ANION GAP 12 (8-16); ASPARTATE AMINO TRANSFERASE 62 IU/L (15-46); BILIRUBIN,INDIRECT 0.6 mg/dl (0-1.1); BILIRUBIN,TOTAL 0.6 mg/dl (0.2-1.3); BLOOD UREA NITROGEN 18 mg/dl (7-20); CALCIUM 8.7 mg/dl (8.4-10.2); CARBON DIOXIDE 29 mmol/L (21-31); CHLORIDE 103 mmol/L (97-110); CREATININE 0.96 mg/dl (0.61-1.24); GLUCOSE 80 mg/dl (70-220); POTASSIUM 4.6 mmol/L (3.5-5.1); SODIUM 139 mmol/L (135-144); TOTAL PROTEIN 7.4 g/dl (6.1-8.1)
[2017-03-07 01:37] LABS: INR 0.98
[2017-03-07 01:38] LABS: PARTIAL THROMBOPLASTIN TIME 29.2 Sec (25.0-35.0)
[2017-03-07 01:46] LABS: BARBITURATES Negative (NEGATIVE); BENZODIAZEPINES Negative (NEGATIVE); CANNABINOIDS Negative (NEGATIVE); COCAINE Negative (NEGATIVE); OPIATES Negative (NEGATIVE)
[2017-03-07 01:47] LABS: ETHANOL < 10.0 mg/dl
[2017-03-07] MEDS ORDERED: SOD CHLORIDE 0.9% 1,000 ML IV SCH (03:31)
[2017-03-07] MEDS ORDERED: ONDANSETRON 4 MG INJ IV PRN (04:00)
[2017-03-07] MEDS ORDERED: NACL 0.9% 3 ML SYG IV SCH (04:00)
[2017-03-07] MEDS ORDERED: ACETAMINOPHEN 325 MG TAB PO PRN (04:00)
[2017-03-07 05:01] VITALS: Ht 172.7 cm; Wt 70.0 kg
[2017-03-07 05:27] VITALS: PULSE 56
--- NOTE | 2017-03-07 05:27 | HP ---
Date/Time of Note Date/Time of Note DATE: 03/07/17 TIME: 05:19 Assessment/Plan VTE Prophylaxis VTE Prophylaxis Intervention: SCD's Assessment/Plan Chief Complaint/Hosp Course This is a 58-year-old male being admitted to the telemetry floor for: #1 hematemesis: NG tube was refused by the patient, will check H&H every 6 hours. Give the patient n.p.o. Normal saline for IV fluid hydration. Pepcid IV twice daily as patient is apparently allergic to Protonix. Hemoglobin is 13 and was 13.3 on 02/21 2017. At the current time will monitor H&H every 6 hours. Will monitor for recurring hematemesis. Will consider GI consult. #2 Xbmlc-Umkpy-Mhtca: Unsure whether this could be contributing to the possible bleed at this time we will continue to monitor #3 amphetamine use: Patient was positive for amphetamines and UDS. Ativan IV as needed for agitation/withdrawal symptoms. #4 DVT and GI prophylaxis: SCDs/Pepcid as patient is apparently allergic to pantoprazole. Further treatment strategy will be implemented as per the clinical course. Problems: HPI/ROS Admit Date/Time Admit Date/Time Mar 07, 2017 at 02:02 Hx of Present Illness Chief complaint: Vomiting blood The patient is a 66-year-old male, presenting to the ER because of recurrent abdominal pain about 12 PM, hematemesis about 3 PM. He has similar symptoms previously. He was admitted on February 21, 2017 for similar symptoms. He had an EGD that showed gastritis, duodenitis, grade 1 esophageal varices, gastric AVM/telangiectasis that did not require any intervention. He was treated conservatively and discharged with Pepcid. He denies syncope, near syncope, neck pain, chest pain, dyspnea, dysuria, diarrhea. of note patient was positive for amphetamines. In the past he has been admitted for similar episodes and at times he is also left AMA. Allergies: Ibuprofen, Zofran, Protonix, strawberry, zolpidem ROS Const: As per HPI Eyes : No pain discharge or redness or change in visual acuity ENT: No pain, sore throat, congestion, congestion, dysphagia or discharge Respiratory: No shortness of breath, cough, sputum, wheezing, or pleuritic pain Cardiovascular: No chest pain, palpitation, PND, or edema GI : As per HPI Genitourinary: No dysuria, hematuria, flank pain , discharge or CVA tenderness Musculoskeletal: No joint pain, back pain, neck pain, restricted range of motion in neck or joints Skin: No rash, bruising or hives Neuro: No headache, dizziness, syncope, seizure, focal weakness Endocrine: No polyuria, polydipsia, temperature intolerance Psych: No hallucination, depression, anxiety or suicidal ideation PMH/Family/Social Past Medical History Hgnsu-Csnup-Bmnkj, skin graft in the nose Past Surgical History Skin graft of the nose, right britt surgery Social History Current every day smoker (6 cigarettes per day 10 years) Smoking Status: Smoker,current status unk Drug Use: other (UDS positive for amphetamines) Exam/Review of Systems Vital Signs Vitals Vital Signs Date Time Temp Pulse Resp B/P Pulse Ox O2 Delivery O2 Flow Rate FiO2 03/07/17 04:34 63 20 129/69 97 Room Air 03/06/17 23:24 98.5 Exam Exam General: Patient is a disheveled, homeless man. Lying in bed sleeping comfortably in no acute distress. HEENT: Atraumatic, normocephalic. The pupils are equal, round and reactive. Extraocular motor are intact, Neck: Supple with full range of motion. No rigidity or meningismus Chest: Nontender Lungs: Clear to auscultation bilaterally no crackles rales or wheezing Heart: Normal S1-S2, Regular rhythm and rate. No overt murmurs appreciated Abdomen: Soft , nontender, nondistended , bowel sounds are present. No guarding no rebound tenderness , No masses or organomegaly. No costovertebral temporal angle mass Extremities: Normal to inspection, no edema no cyanosis Neurologic: Normal mental status, speech normal, cranial nerves II through XII are intact, motor and sensory are intact, no focal weakness Labs Result Diagram: 03/07/17 0025 03/07/17 0025 Medications Medications Current Medications Sodium Chloride (NS) 1,000 ml @ 75 mls/hr [id number] IV Last administered on 03/07t 04:10; Admin Dose 75 MLS/HR; Start 03/07/17 at 03:31 Ondansetron HCl (Zofran Inj) 4 mg Q6H PRN IV NAUSEA AND/OR VOMITING; Start at 04:00 Acetaminophen (Tylenol Tab) 650 mg Q6H PRN PO PAIN LEVEL 1-3 OR FEVER Last administered on 03/07/17t 04:10; Admin Dose 650 MG; Start 03/07/17 at 04:00 Pantoprazole (Protonix Iv) 40 mg BID IV ; Start 03/07/17 at 09:00 BALAJI MITCHELL Mar 07, 2017 05:27
[2017-03-07] MEDS ORDERED: LORAZEPAM 2 MG INJ IV PRN (05:30)
[2017-03-07 07:45] VITALS: BP 135/75; RESP 18
[2017-03-07 08:01] VITALS: PULSE 58
[2017-03-07] MEDS ORDERED: PANTOPRAZOLE 40 MG INJ IV SCH (09:00)
[2017-03-07] MEDS ORDERED: FAMOTIDINE 20 MG INJ IV SCH (09:00)
[2017-03-07 11:21] VITALS: BP 142/16; RESP 19
--- NOTE | 2017-03-07 14:23 | PDOCDIS ---
Discharge Instructions DIAGNOSIS Discharge Diagnosis Hematemesis. Resolved. CONDITION Patient Condition: Stable OTHER ORDERS: Other Orders: 1. Resume home medications. 2. Diet as tolerated. 3. Abstain from using recreational drugs. 4. Follow-up with your primary care physician 1 week. If you do not have a primary care physician, please call Dr. Miles Marie's office. 5. Please go to the nearest emergency room if you have persistent vomiting of blood, persistent black tarry stools, or any other unusual signs/symptoms. ERNST MONTAGUE NP Mar 07, 2017 14:23
[2017-03-07 15:47] VITALS: BP 134/71; RESP 17
--- NOTE | 2017-03-08 15:34 | DS ---
Date/Time of Note Date/Time of Note DATE: 03/08/17 TIME: 15:34 Discharge Summary Admission/Discharge Info Admit Date/Time Mar 07, 2017 at 02:02 Discharge Date/Time Mar 07, 2017 at 17:25 Discharge Diagnosis 1. Hematemesis. Resolved. Stable H&H. 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 3. Substance abuse. 4. Homeless status. Patient Condition: Stable Procedures None. Hx of Present Illness Chief complaint: Vomiting blood. The patient is a 66-year-old male, who presented to the ER because of recurrent abdominal pain about 12 PM, hematemesis about 3 PM. He had similar symptoms previously. He was admitted on February 21, 2017 for similar symptoms. He had an EGD at that time that showed gastritis, duodenitis, grade 1 esophageal varices, gastric AVM/telangiectasis that did not require any intervention. He was treated conservatively and discharged with Pepcid. He denied syncope, near syncope, neck pain, chest pain, dyspnea, dysuria, diarrhea. Of note patient was positive for amphetamines. In the past he has been admitted for similar episodes and at times he is also left AMA. Allergies: Ibuprofen, Zofran, Protonix, strawberry, zolpidem Hospital Course In the emergency room, the patient was noticed to have a hemoglobin and hematocrit of 13.0 and 41.2 respiratory. The patient was admitted to inpatient setting for further evaluation. The patient's urine drug toxicology was positive for amphetamines. The patient did not have any evidence of any repeat hematemesis. The patient underwent an esophagogastroduodenoscopy on 02/21/2017 that showed grade 1/4 esophageal varices with multiple telangiectasis in the proximal stomach with no bleeding and moderate gastritis and duodenitis. The patient's gastric biopsy was negative for any H. pylori. Patient was treated with histamine 2 receptor blockers at that time because he is apparently allergic to proton pump inhibitors. The patient was started on a diet and the patient was able to tolerate a regular consistency diet without any significant gastrointestinal symptoms. Of note, the patient refused to have repeat blood draws. There was no more episodes of hematemesis. The reported hematemesis episode episode was very small. This could be most probably from his underlying arteriovenous malformations in the stomach that was evident on his previous esophagogastroduodenoscopy on 02/21/2017. Patient is medically stable to be discharged home and the patient refused any further care including repeat blood draws. Discharge disposition/plan. The patient will be discharged today. The patient was instructed to resume his previous medications. He was instructed to take a diet as tolerated. He was instructed to abstain from using recreational drugs. He was instructed to follow-up with his primary care physician 1 week and if he does not have a primary care physician to please call Dr. Miles Marie's office. The patient was instructed to go to the nearest emergency room if he continues to have persistent vomiting of blood, persistent black tarry stools, or any other unusual signs/symptoms. The patient verbalized understanding of his discharge instructions. Case discussed with Dr. Aldridge. Home Meds Active Scripts Famotidine* (Pepcid*) 20 Mg Tablet, 20 MG PO BID, #90 TAB Prov:AMBER MENJIVAR NP 02/22/17 Follow-up Plan Follow-up with your primary care physician in 1 week. Primary Care Provider Not On Staff Doctor Time spent on discharge: > 30 minutes ERNST MONTAGUE NP Mar 08, 2017 15:34
--- NOTE | 2017-03-10 07:02 | DS ---
DATE OF ADMISSION: 03/07/2017 DATE OF DISCHARGE: 03/07/2017 FINAL DIAGNOSES: 1. Hematemesis. Stable H and H. resolved. 2. 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 HOSPITAL COURSE: The patient is a 66-year-old male, who came to the emergency room with a chief complaint of abdominal pain as well as hematemesis. There was no reported syncope, neck pain, chest pain, dyspnea, dysuria, or diarrhea. In the emergency room, the patient was noticed to have a hemoglobin and hematocrit of 13.0 and 41.2 respectively. The patient was admitted to inpatient setting for further evaluation. The patient's urine drug toxicology was positive for amphetamines. The patient is allergic to proton pump inhibitors. Hence the patient was maintained on histamine 2 receptor blockers. The patient did not have any evidence of any repeat hematemesis. The patient underwent an esophagogastroduodenoscopy on 02/21/2017 that showed grade 1/4 esophageal varices with multiple telangiectases in the proximal stomach with no bleeding and moderate gastritis and duodenitis. The patient's gastric biopsy was negative for any H pylori. The patient was started on a diet and the patient was able to tolerate a regular consistency diet without any significant gastrointestinal symptoms. Of note, the patient refused to have repeat blood draws. There was no more episodes of hematemesis. The reported hematemesis episode was very small. This could be most probably from his underlying arteriovenous malformations in the stomach that was evident on his previous esophagogastroduodenoscopy on 02/21/2017. The patient is medically stable to be discharged and the patient refused any further care including repeat blood draws. DISCHARGE DISPOSITION/PLAN: The patient will be discharged today. The patient was instructed to resume his previous medications. He was instructed to take a diet as tolerated. He was instructed to abstain from using recreational drugs. He was instructed to follow up with his primary care physician in 1 week and if he does not have a primary care physician, to please call Dr. Miles Marie's office. The patient was instructed to go to the nearest emergency room if he continues to have persistent vomiting of blood, persistent black tarry stools or any other unusual signs/symptoms. The patient was understanding of discharge instructions. DISCHARGE CONDITION: Stable. DISCHARGE MEDICATIONS: Famotidine 20 mg p.o. b.i.d. PERTINENT LABORATORY AND DIAGNOSTIC DATA: 1. WBC 5.3, hemoglobin 13.0, hematocrit 41.2, platelet count 232. 2. Latest BMP, sodium 139, potassium 4.6, chloride 103, carbon dioxide 20, anion gap 12, BUN 18, creatinine 0.9, glucose 80, calcium 8.7. 3. Coag panel. PT 13.2, INR 0.9, APTT 29.2. 4. Urine drug toxicology positive for amphetamines. The case and management of this patient was thoroughly discussed with Dr. Aldridge. Approximately 35 minutes were spent on coordinating the discharge on this patient. Dictated By: Joseluis Osorio NP /britta/ralph /Document#: [id number] EDIS
== END 2017-03-07 17:25 | disposition home or self-care (01) | DRG 379 ==
LOC: E/R 23:21 → MS4 03-07 02:02
PROVIDERS: ADMIT Family Medicine; ATTEND Family Medicine
DX: K92.0 Hematemesis (principal); I78.0 Hereditary hemorrhagic telangiectasia; F15.10 Other stimulant abuse, uncomplicated; F17.210 Nicotine dependence, cigarettes, uncomplicated
CPT/HCPCS: 36415; 80053; 80306; 80307; 83690; 85025; 85610; 85730; 86850; 86900; 86901; 96374; J7030

== ENCOUNTER 2017-04-29 10:36 | Emergency (ER) | payer MEDICARE, OTHER ==
[~2017-04-29] VITALS: Ht 177.8 cm; Wt 70.0 kg
[2017-04-29 10:38] VITALS: Ht 177.8 cm; Wt 70.0 kg
--- NOTE | 2017-04-29 12:44 | ERD ---
ER Documentation Chief Complaint Chief Complaint generalized bodyaches HPI The patient is a 66-year-old male, presenting to the ER because of generalized body pain when he woke up this morning. He denies fever, nasal congestion, nasal discharge, cough,. He denies syncope, near syncope, neck pain, chest pain , dyspnea, dysuria, diarrhea. He denies smoking or drinking nor using illicit drugs. However, on previous admission he had amphetamine in UDS. Past medical history: Ybgpd-Hmtei-Ezucj ROS All systems reviewed and are negative except as per history of present illness. Medications Home Meds Active Scripts Acetaminophen* (Acetaminophen*) 650 Mg Tablet, 650 MG PO Q6H Y for PAIN AND OR ELEVATED TEMP, #30 TAB Prov:SHIRA GABRIEL MD 04/29/17 Famotidine* (Pepcid*) 20 Mg Tablet, 20 MG PO BID, #90 TAB Prov:AMBER MENJIVAR NP 02/22/17 Allergies Allergies: Coded Allergies: ondansetron (Unverified Allergy, Intermediate, swelling to vein, 03/07/17) ibuprofen (Unverified Allergy, Mild, 03/07/17) strawberry (Unverified Allergy, Mild, 03/07/17) pantoprazole sodium (Unverified Allergy, Unknown, 03/07/17) zolpidem (Unverified Allergy, Unknown, 03/07/17) PMhx/Soc History of Surgery: Yes Anesthesia Reaction: No Hx Neurological Disorder: No Hx Respiratory Disorders: Yes (possible sleep apnea) Hx Cardiac Disorders: No Hx Psychiatric Problems: Yes (depression) Hx Miscellaneous Medical Probl: No Hx Alcohol Use: Yes Hx Tobacco Use: Yes Physical Exam Vitals Vital Signs Date Time Temp Pulse Resp B/P Pulse Ox O2 Delivery O2 Flow Rate FiO2 04/29/17 14:45 97.9 80 18 147/65 100 Room Air 04/29/17 10:38 100.6 84 18 148/69 94 Physical Exam Const: No acute distress. Head: Atraumatic. Eyes: Normal Conjunctiva. ENT: Normal External Ears, Nose and Mouth. Neck: Full range of motion. No meningismus. Resp: Clear to auscultation bilaterally. Cardio: Regular rate and rhythm. Abd: Soft, non distended, normal bowel sounds, non tender. Skin: No petechiae or rashes. Back: No midline or flank tenderness. Ext: No cyanosis, or edema. Neur: Awake and alert. No focal deficit Psych: Normal Mood and Affect. Results 24 hrs Current Medications Medications (Trade) Dose Ordered Sig/Yeyo Route PRN Reason Start Time Stop Time Status Last Admin Dose Admin Acetaminophen (Tylenol Tab) 650 mg ONCE ONCE PO 04/29/17 13:00 04/29/17 13:01 DC 04/29/17 13:07 Procedures/MDM [place] [id number] Radiology Main Line: [phone] DIAGNOSTIC IMAGING REPORT Patient: CASSIE RICHTER : 1950 Age: 67 Sex: M MR #: [id number] DOS: 04/29/17 1250 Ordering MD: SHIRA GABRIEL MD Location: E/R Room/Bed: PROCEDURE: XR Chest. CLINICAL INDICATION: cough TECHNIQUE: Single frontal view of the chest was obtained COMPARISON: CR CHEST 06/30/2016; CR CHEST 12/28/2015; CR CHEST 11/17/2015 FINDINGS: The heart is not enlarged. The thoracic aorta is ectatic. The des are stable in configuration. Left base fibrosis or chronic discoid atelectasis is present. Old healed fracture deformity of the posterior left 7th rib is present. IMPRESSION: 1. Stable chest examination again demonstrating left lower lobe fibrosis or chronic discoid atelectasis. 2. Ectatic descending thoracic aorta. RPTAT: HRSR Physician Lorenzo Date Time Electronically viewed and signed by Physician Lorenzo on 04/29/2017 13 :38 RR/ CC: SHIRA GABRIEL MD MEDICAL MAKING DECISION: The patient is a 67-year-old male, presenting with acute total body pain of unclear etiology. He is stable for outpatient follow- up The differential diagnoses considered include but are not limited to viral syndrome, influenza, bronchitis, pneumonia, cystitis Departure Diagnosis: Primary Impression: Total body pain Condition: Good Comments He was discharged with Tylenol The patient's blood pressure was elevated (>120/80) but appears stable without evidence of hypertension emergency or urgency. The patient was counseled about the risks of hypertension and urged to pursue outpatient monitoring and therapy within a week with their primary care physician. I discussed the findings with the patient. I advised the patient to follow-up with the primary physician in about 1-2 days, sooner if needed and return if any concern. Disclaimer: Inadvertent spelling and grammatical errors are likely due to EHR/ dictation software use and do not reflect on the overall quality of patient care. Also, please note that the electronic time recorded on this note does not necessarily reflect the actual time of the patient encounter. SHIRA GABRIEL MD Apr 29, 2017 12:44
[2017-04-29] MEDS ORDERED: ACETAMINOPHEN 325 MG TAB PO ONE (13:00)
--- NOTE | 2017-04-29 13:39 | RADRPT ---
PROCEDURE: XR Chest. CLINICAL INDICATION: cough TECHNIQUE: Single frontal view of the chest was obtained COMPARISON: CR CHEST 06/30/2016; CR CHEST 12/28/2015; CR CHEST 11/17/2015 FINDINGS: The heart is not enlarged. The thoracic aorta is ectatic. The des are stable in configuration. Left base fibrosis or chronic discoid atelectasis is present. Old healed fracture deformity of the post erior left 7th rib is present. IMPRESSION: 1. Stable chest examination again demonstrating left lower lobe fibrosis or chronic discoid atelect asis. 2. Ectatic descending thoracic aorta. RPTAT: HRSR Physician Lorenzo Date Time Electronically viewed and signed by Physician Lorenzo on 04/29/2017 13:38 RR/
[2017-04-29] MEDS ORDERED: ACET-2047 PO (14:07)
[2017-04-29 14:45] VITALS: BP 147/65; PULSE 80; RESP 18; TEMP 97.9
== END 2017-04-29 14:49 | disposition home or self-care (01) ==
LOC: E/R 10:36
DX: R52 Pain, unspecified (principal); R05 Cough; R40.2142 Coma scale, eyes open, spontaneous, at arrival to emergency department; R40.2252 Coma scale, best verbal response, oriented, at arrival to emergency department; R40.2362 Coma scale, best motor response, obeys commands, at arrival to emergency department
CPT/HCPCS: 71010

== ENCOUNTER 2017-06-13 23:02 | Emergency (ER) | END 2017-06-14 04:18 | disposition left against medical advice (07) ==

== ENCOUNTER 2017-08-02 05:51 | Emergency (ER) | END 2017-08-02 08:06 | disposition left against medical advice (07) ==

== ENCOUNTER 2017-08-11 10:25 | Emergency (ER) | END 2017-08-11 14:21 | disposition left against medical advice (07) ==

== ENCOUNTER 2017-10-18 21:35 | Emergency (ER) | END 2017-10-18 23:11 | disposition left against medical advice (07) ==

== ENCOUNTER 2018-02-02 03:03 | Emergency (ER) | END 2018-02-02 05:14 | disposition home or self-care (01) ==

== ENCOUNTER 2018-11-29 04:24 | Emergency (ER) | payer MEDICARE, OTHER ==
[~2018-11-29] VITALS: Ht 157.5 cm; Wt 65.2 kg
[~2018-11-29 04:24] MED LIST changes: +ACET-2047 PO; +CIPR500T4 PO; +DICY10CA40 PO
[2018-11-29 04:28] VITALS: Ht 157.5 cm; Wt 65.2 kg
[2018-11-29] MEDS ORDERED: ALBUTEROL 0.5% (NEB) 2.5 MG/0.5 ML AMP INH STA (04:37)
[2018-11-29] MEDS ORDERED: IPRATROPIUM (NEB) 0.5 MG/2.5 ML AMP INH STA (04:37)
[2018-11-29] MEDS ORDERED: MAGNESIUM SULFATE 2 GM/50 ML 50 ML IVPB STA (04:37)
[2018-11-29] MEDS ORDERED: DEXAMETHASONE 10 MG/ML 1 ML INJ IV STA (04:37)
--- NOTE | 2018-11-29 05:13 | ERD ---
ER Documentation Chief Complaint Chief Complaint Bib self, cc: sob x 3 days, HPI This is a 68-year-old gentleman well-known to this emergency department for alcohol-related issues. The patient additionally has a history of hereditary hemorrhagic telangiectasia. The patient presents today because of shortness of breath for approximately 3 days. He denies any chest pain. He describes a dry nonproductive cough. The patient smokes at least 5 cigarettes a day. He denies any hematemesis or melena. No pleuritic discomfort. Symptoms are moderate. ROS All systems reviewed and are negative except as per history of present illness. Medications Home Meds Active Scripts Levofloxacin* (Levaquin*) 750 Mg Tablet, 750 MG PO DAILY for 5 Days, TAB Prov:ANNALISE LAL MD 11/29/18 Albuterol Sulfate* (Ventolin HFA*) 18 Gm Hfa.aer.ad, 2 PUFF INHALATION Q4H, #1 INHALER Prov:ANNALISE LAL MD 11/29/18 Dicyclomine HCl (Dicyclomine HCl) 10 Mg Capsule, 10 MG PO TID PRN for ABDOMINAL CRAMPING, #20 CAP Prov:ANNALISE LAL MD 07/15/18 Ciprofloxacin Hcl* (Ciprofloxacin Hcl*) 500 Mg Tablet, 500 MG PO BID for 3 Days, TAB Prov:ANNALISE LAL MD 07/15/18 Acetaminophen* (Acetaminophen*) 650 Mg Tablet, 650 MG PO Q6H PRN for PAIN AND OR ELEVATED TEMP, #30 TAB Prov:SHIRA GABRIEL MD 04/29/17 Famotidine* (Pepcid*) 20 Mg Tablet, 20 MG PO BID, #90 TAB Prov:AMBER MENJIVAR NP 02/22/17 Allergies Allergies: Coded Allergies: ondansetron (Unverified Allergy, Intermediate, swelling to vein, 02/02/18) ibuprofen (Unverified Allergy, Mild, 02/02/18) strawberry (Unverified Allergy, Mild, 02/02/18) pantoprazole sodium (Unverified Allergy, Unknown, 02/02/18) zolpidem (Unverified Allergy, Unknown, 02/02/18) PMhx/Soc History of Surgery: Yes (RIGHT INDEX FINGER AMPUTATION, JAW SURGERY) Anesthesia Reaction: No Hx Neurological Disorder: No Hx Respiratory Disorders: Yes Hx Cardiac Disorders: No Hx Psychiatric Problems: Yes (depression) Hx Miscellaneous Medical Probl: No Hx Alcohol Use: Yes (social) Hx Substance Use: Yes (meth use 2 days ago ) Hx Tobacco Use: No Smoking Status: Current every day smoker FmHx Family History: No diabetes Physical Exam Vitals Vital Signs Date Temp Pulse Resp B/P (MAP) Pulse Ox O2 O2 Flow FiO2 Time Delivery Rate 11/29/18 Nasal 05:01 Cannula 11/29/18 71 31 98 21 04:49 11/29/18 98.7 81 19 170/89 100 Room Air 04:37 (116) 11/29/18 98.7 50 19 173/79 100 04:28 (110) Physical Exam General: Somewhat disheveled, no distress Head: Normocephalic, atraumatic. Eyes: Pupils equally reactive, EOM intact ENT: Moist mucous membranes Neck: Supple, no lymphadenopathy Respiratory: Wheezing bilaterally, talking in full sentences Cardiovascular: RRR, no murmurs, rubs, or gallops Abdominal: Soft, non-tender, non-distended, no peritoneal signs : Deferred MSK: No edema, no unilateral swelling, 5/5 strength Neurologic: Alert and oriented, moving all extremities, normal speech, no focal weakness, no cerebellar signs Skin: No rash Psych: Normal mood Result Diagram: 11/29/18 0500 11/29/18 0500 Results 24 hrs Laboratory Tests Test 11/29/18 05:00 White Blood Count 4.4 10^3/ul Red Blood Count 4.76 10^6/ul Hemoglobin 14.1 g/dl Hematocrit 44.6 % Mean Corpuscular Volume 93.7 fl Mean Corpuscular Hemoglobin 29.6 pg Mean Corpuscular Hemoglobin Concent 31.6 g/dl Red Cell Distribution Width 14.5 % Platelet Count 180 10^3/UL Mean Platelet Volume 10.2 fl Immature Granulocytes % 0.200 % Neutrophils % 51.6 % Lymphocytes % 28.0 % Monocytes % 12.6 % Eosinophils % 6.2 % Basophils % 1.4 % Nucleated Red Blood Cells % 0.0 /100WBC Immature Granulocytes # 0.010 10^3/ul Neutrophils # 2.3 10^3/ul Lymphocytes # 1.2 10^3/ul Monocytes # 0.6 10^3/ul Eosinophils # 0.3 10^3/ul Basophils # 0.1 10^3/ul Nucleated Red Blood Cells # 0.0 10^3/ul Sodium Level 145 mmol/L Potassium Level 4.3 mmol/L Chloride Level 108 mmol/L Carbon Dioxide Level 28 mmol/L Anion Gap 9 Blood Urea Nitrogen 27 mg/dl Creatinine 1.26 mg/dl Est Glomerular Filtrat Rate mL/min 57 mL/min Glucose Level 110 mg/dl Calcium Level 9.1 mg/dl Troponin I 0.035 ng/ml B-Type Natriuretic Peptide 629 PG/ML Current Medications Medications Dose Sig/Yeyo Start Time Status Last (Trade) Ordered Route PRN Stop Time Admin Dose Reason Admin Albuterol 15 mg ONCE STAT 11/29/18 DC 11/29/18 (Proventil INH 04:37 04:49 0.5% (Neb)) 11/29/18 04:40 Ipratropium 2 mg ONCE STAT 11/29/18 DC 11/29/18 Worden INH 04:37 04:49 (Atrovent 11/29/18 04:40 0.02% (Neb)) 10 mg ONCE STAT 11/29/18 DC 11/29/18 Dexamethasone IV 04:37 05:11 (Decadron) 11/29/18 04:40 Magnesium 50 ml @ 25 ONCE STAT 11/29/18 11/29/18 Sulfate mls/hr IVPB 04:37 05:11 11/29/18 06:36 150 ml @ ONCE ONCE 11/29/18 Levofloxacin/ 100 mls/hr IVPB 06:00 Dextrose 11/29/18 07:29 Procedures/MDM EKG, MONITORS, & DIAGNOSTIC IMAGING: EKG: I reviewed and interpreted a 12-lead EKG. Rhythm: Normal sinus rhythm ST Changes: No contiguous ST segment elevations T waves: No contiguous T wave inversions Impression: [No evidence of acute cardiac ischemia] Chest x-ray: I reviewed and interpreted a 1 view of the chest Mediastinum: No enlargement Cardiac silhouette: No cardiomegaly Airspace: Clear lung self bilaterally without evidence of pneumothorax Bones: No evidence of fracture LAB INTERPRETATION: I reviewed the laboratory testing and it shows negative troponin MEDICAL DECISION MAKING: Clinical exam and history are most consistent with likely COPD exacerbation given on smoking, wheezing. No significant respiratory distress. Low clinical concern for cardiac etiology. No clinical signs or symptoms concerning for CHF. ER COURSE: * Patient was given an hour-long breathing treatment and with a dramatic improvement. Levaquin provided for COPD exacerbation. Patient given Decadron and magnesium * Patient significantly improved. Laboratory testing is reassuring. At this point I feel the patient can be safely discharged with close primary care follow-up. * Homeless discharge process initiated CONSULTATION: [None] DISPOSITION PLAN: The patient does not have an identifiable emergent medical condition that warrants inpatient hospitalization at this time. The patient is deemed safe for discharge with outpatient follow-up. We discussed follow up with the patient's primary care doctor within 24 to 48 hours as needed. We also discussed return to the emergency room for worsening symptoms or worsening condition. Outpatient referral: [None required] Discharge Medications: Ventolin, Levaquin Departure Diagnosis: Primary Impression: COPD exacerbation Condition: Stable ANNALISE LAL MD Nov 29, 2018 05:13
[2018-11-29] MEDS ORDERED: ALBU18HF INHALATION (05:57)
[2018-11-29] MEDS ORDERED: LEVO750T25 PO (05:57)
[2018-11-29] MEDS ORDERED: LEVOFLOXACIN 750MG/D5W (PMX) 150 ML IVPB ONE (06:00)
[2018-11-29 07:26] VITALS: BP 152/74; PULSE 69; RESP 19
== END 2018-11-29 07:38 | disposition home or self-care (01) ==
LOC: E/R 04:24
DX: J44.1 Chronic obstructive pulmonary disease with (acute) exacerbation (principal); F17.210 Nicotine dependence, cigarettes, uncomplicated
CPT/HCPCS: 71045; 80048; 83880; 84484; 85025; 93005; 94644; 96365; 96375; 99285; J1100; J1956; J3475